=== PATIENT | male | born 1945 | race Caucasian/White ===

== ENCOUNTER 2022-07-16 07:20 | Observation (INO) ==
--- NOTE | 2022-06-05 09:02 | PAT Medication Instructions ---
Medication Instructions Date of Service June 05, 2022 Home Medications Medication Instructions Recorded metoprolol tartrate 25 mg tablet 12.5 mg PO BID #30 tabs 03/08/21 memantine 5 mg tablet (Namenda) 5 mg PO .COMPLEX #180 tabs 06/03/22 donepezil 5 mg tablet 5 mg PO DAILY #30 tabs 06/04/22 sertraline 50 mg tablet 50 mg PO DAILY #30 tabs 06/04/22 metoprolol tartrate 25 mg tablet 12.5 mg PO BID acetaminophen 500 mg tablet 1,000 mg PO Q6H PRN aspirin 81 mg tablet,delayed release 81 mg PO QAM ezetimibe 10 mg-simvastatin 40 mg tablet 1 tab PO HS metformin 500 mg tablet 500 mg PO BID multivitamin (Multiple Vitamins tablet) 0.5 tab PO BID ramipril 10 mg capsule 10 mg PO QAM rivaroxaban 20 mg tablet (Xarelto) 20 mg PO QPM vit A 7,160 unit-vit C 113 mg-vit E 100 toel-nmti-gxorpm tablet 0.5 tab PO BID memantine 5 mg tablet (Namenda) 5 mg PO .COMPLEX donepezil 5 mg tablet 5 mg PO DAILY sertraline 50 mg tablet 50 mg PO DAILY Continue as directed memantine 5 mg tablet (Namenda) 5 mg PO .COMPLEX sertraline 50 mg tablet 50 mg PO DAILY ASK your prescriber and surgeon rivaroxaban 20 mg tablet (Xarelto) 20 mg PO QPM(in order for spinal or epidural anesthesia, Xarelto needs to be stopped 72 hours/3 days before surgery. Please check if okay with doctor that prescribes this to you) STOP taking 2 weeks before surgery vit A 7,160 unit-vit C 113 mg-vit E 100 ewkb-amsc-enhylv tablet 0.5 tab PO BID DO NOT take the morning of surgery metformin 500 mg tablet 500 mg PO BID multivitamin (Multiple Vitamins tablet) 0.5 tab PO BID ramipril 10 mg capsule 10 mg PO QAM donepezil 5 mg tablet 5 mg PO DAILY Take morning of surgery With a small sip of water, OTHERWISE NOTHING TO EAT OR DRINK AFTER MIDNIGHT: metoprolol tartrate 25 mg tablet 12.5 mg PO BID acetaminophen 500 mg tablet 1,000 mg PO Q6H PRN(if needed) aspirin 81 mg tablet,delayed release 81 mg PO QAM (unless directed otherwise by surgeon) Take evening before surgery metoprolol tartrate 25 mg tablet 12.5 mg PO BID acetaminophen 500 mg tablet 1,000 mg PO Q6H PRN(if needed) ezetimibe 10 mg-simvastatin 40 mg tablet 1 tab PO HS metformin 500 mg tablet 500 mg PO BID multivitamin (Multiple Vitamins tablet) 0.5 tab PO BID Other Notes If you have any questions please call us at [phone] or [phone] or [phone] or [phone]
--- NOTE | 2022-06-09 14:20 | Anesthesiology Consultation ---
Date of Service June 09, 2022 Assessment & Plan (1) Encounter for pre-operative examination: Plan - awaiting cardiology pre-op evaluation. - check BSG am DOS. - pacemaker: [facility] [facility]. - Outpatient joint pathway: Per booking sheet, plan for outpatient joint program. Pt and are concerned/hesitant to pursue outpatient joint and prefer at this time to change plan to overnight observation. If this were to change in future, it would need further review by anesthesiologist given pt age and co-morbidities. Surgeon's office made aware. - will attempt to obtain copy of COVID test from 04/2022, done at [facility] [place] per pt and his . - PCP 05/13/22: "...fall on may 06...seen in the emergency room and had 4 sutures placed in a laceration just superior to his right orbit. Laceration appears well healed at the present time..." - cardiology 03/17/22: "...fatigue, loss of appetite and weight loss-with recent diagnosis of early dementia and depression...07/26/2020 ILR, [facility] > 5 s pause, 08/08/20 s/p dual pacer, [facility]...episode of syncope in November 2019. Loop recorder demonstrates symptomatic 5-second pause. These findings taken together suggested sick sinus syndrome...underwent permanent pacemaker implantation on 08/08/20. No further episodes of syncope...echocardiogram 03/03/22 shows normal wall motion. Lexiscan Cardiolite from 12/18/20 shows fixed inferior/inferoseptal and apical lateral defects. Continue Xarelto for stroke prevention...CT of chest shows stable ascending aortic aneurysm 02/20/22 4.6 cm. Will consider referral after next visit...June 2022-pre-op L knee..." - COVID screening: Per assessment on 06/09/2022: Travel screen-will return from [place] 06/29/22, no known COVID-19 positive contacts or current COVID-19 related symptoms in past 2 weeks. Will attempt to obtain copy of previous positive COVID test given 90 day window. Chart Review Chart Review: Pending: Refer to Additional Notes / Consult section and Patient seen in Pre Admission Testing Teaching & Discussion Pre-Anesthesia Teaching/Discussion Notes: Instructed NPO after midnight before surgery, except medications with 15 cc of water. Medication instructions provided according to the PAT guidelines. History Surgery Operation Date: 07/16/22 08:00 Proposed Procedures p Left Total Knee Arthroplasty - Deshawn Griffiths DO Height/Weight Height: 5 ft 8 in Weight: 73.6 kg Allergies Allergy/AdvReac Type Severity Reaction Status Date / Time No Known Allergies Allergy Verified 06/03/22 11:35 Medications Home Medications Medication Instructions Recorded Confirmed Last Taken metoprolol tartrate 25 mg tablet 12.5 mg PO BID #30 tabs 03/08/21 06/03/22 Unknown acetaminophen 500 mg tablet 1,000 mg PO Q6H PRN Pain 05/30/22 06/03/22 Unknown aspirin 81 mg tablet,delayed 81 mg PO QAM 05/30/22 06/03/22 Unknown release ezetimibe 10 mg-simvastatin 40 mg 1 tab PO HS 05/30/22 06/03/22 Unknown tablet metformin 500 mg tablet 500 mg PO BID 05/30/22 06/03/22 Unknown multivitamin (Multiple Vitamins 0.5 tab PO BID 05/30/22 06/03/22 Unknown tablet) ramipril 10 mg capsule 10 mg PO QAM 05/30/22 06/03/22 Unknown rivaroxaban 20 mg tablet (Xarelto) 20 mg PO QPM 05/30/22 06/03/22 Unknown vit A 7,160 unit-vit C 113 mg-vit 0.5 tab PO BID 05/30/22 06/03/22 Unknown E 100 oqyn-ebmx-jsuipu tablet memantine 5 mg tablet (Namenda) 5 mg PO .COMPLEX #180 tabs 06/03/22 06/03/22 Unknown donepezil 5 mg tablet 5 mg PO DAILY #30 tabs 06/04/22 Unknown sertraline 50 mg tablet 50 mg PO DAILY #30 tabs 06/04/22 Unknown Past Medical History Medical History (Updated 06/09/22 @ 15:02 by Kalyn Escoto PA-C) Anxiety Ascending aortic aneurysm 4.6cm per 02/20/22 CT chest- under surveillance per cardio Basal cell carcinoma NOSE-Mohs CAD (coronary artery disease) Stent x1 (1999) Depression Diabetes mellitus, type 2 NIDDM Enlarged prostate Essential tremor Hands, followed by PCP History of COVID-19 Dx 04/18/22 ([facility]) Symptoms at time: fatigue, loss of taste, cough, sore throat > resolved Hypertension controlled, stable per pt Memory loss Myocardial infarction 1999, Follows with Dr. Senior Pacemaker [facility], implanted 2019 Paroxysmal atrial fibrillation Patient denies h/o stroke, seizures, heart failure, blood clots or blood transfusions. Exercise / Class Metabolic Activity II 4-5 Yardwork/Stairs/Walk up hill (mild SOB with 1 FOS, denies needing to stop, ongoing x several months; denies chest discomfort) Past Family History Family History (Updated 05/30/22 @ 09:07 by Chari Jin, CRIS) Father Myocardial infarction Pneumonia Mother CHF (congestive heart failure) Dementia Sister Bipolar disorder Brother Cerebral aneurysm Past Surgical History Surgical History (Updated 06/05/22 @ 13:39 by Juana Viera) H/O heart artery stent Stent x1 (1999) History of loop recorder History of prostate biopsy Benign x2 Pacemaker Past Anesthesia History No Hx of Anesthesia Complications and Other (mother slow to wake) History of PONV No Hx of PONV and No Hx of Motion Sickness Social History Smoking Status: Never smoker Do You Dip or Chew Tobacco: No Hx Alcohol Use: No Hx Substance Use: No Review of Systems Occasional snoring, denies witnessed apneas. Patient denies chest pain, reflux, fever, chills, cough, wheezing, or palpitations. Physical Exam Vital Signs Vitals BP 109/64 P 61 TEMP 98.4 SP02 95% on RA RESP 17 Physical Full cervical extension range of motion without pain TMD 3.5 finger breadths Mallampati Score 3 Dentition: intact, several caps/crowns, denies chipped or loose teeth, implants or bridges Lungs: normal respiratory effort. Clear throughout to auscultation, no adventitious breath sounds Cardiac: regular rate and rhythm, no murmurs noted Carotid arteries: negative bruit bilat Lab Results Anesthesia Preop Results Results Anesthesia Widget: WBC 7.23 K/ul (4.8-10.8) 06/09/22 Hgb 13.6 g/dl (14.0-18.0) L 06/09/22 Hct 41.9 % (40.1-51.0) 06/09/22 Plt 205 K/uL (130-400) 06/09/22 Na 141 mmol/L (136-145) 06/09/22 K 4.2 mmol/L (3.5-5.1) 06/09/22 Cl 106 mmol/L (98-107) 06/09/22 CO2 29 mmol/L (21-32) 06/09/22 BUN 19 mg/dl (6-23) 06/09/22 Creat 0.87 mg/dl (0.6-1.4) 06/09/22 Glucose Level 93 mg/dl (70-99(Fasting)) 06/09/22 PT 11.6 Seconds (9.0-12.0) 06/09/22 PTT 30.6 Seconds (21.0-31.0) 06/09/22 INR 1.1 (0.9-1.1) 06/09/22 HA1c 6.3 % (4.5-5.6) H 06/09/22 Urine Color Yellow 06/09/22 Urine Appearance Clear (Clear) 06/09/22 Urine pH 6.5 (4.5-7.5) 06/09/22 Urine Specific [place] 1.024 (1.000-1.030) 06/09/22 Urine Protein Negative (Negative) 06/09/22 Urine Glucose (UA) Negative (Negative) 06/09/22 Urine Ketones Trace (Negative) H 06/09/22 Urine Blood Negative (Negative) 06/09/22 Urine Nitrite Negative (Negative) 06/09/22 Urine Bilirubin Negative (Negative) 06/09/22 Urine Urobilinogen Negative (Negative) 06/09/22 Urine Leukocyte Esterase Negative (Negative) 06/09/22 Blood Type O Positive 06/09/22 Antibody Screen NEGATIVE 06/09/22 Testing Laboratory Results A1c - 6.2% 05/13/22 Electrocardiogram Date: 03/17/22 NSR 60 bpm, early transition Chest X-Ray Date: 11/20/21 Mild atherosclerotic calcification of the aortic arch and descending thoracic aorta Left chest wall pacemaker and associated leads are unchanged in position Loop recorder within the left chest wall is also in stable position No radiographic evidence of active disease in the chest Echocardiogram Date: 03/03/22 EF 55-60% The previously noted WMA is not clearly apparent now Mildly dilated LA Mild mitral regurgitation Mild tricuspid regurgitation, RVSP 29 mmHg Ascending aorta 4.1 cm Stress Test Date: 12/18/20 Abnormal Evidence of prior basal to mid inferior/inferoseptal nontransmural infarction and possible apical lateral infarction, but no evidence of transient myocardial ischemia Other Testing Pacemaker report 03/20/22 [facility] Presenting rhythm AP/VS Mode: DDDR 27 mode switch episodes Atrial burden 1% RA pacing 81% RV pacing 4.8%
--- NOTE | 2022-06-30 09:09 | History & Physical Report ---
Date of Service June 30, 2022 date of surgery: 07/16/22 Procedure: Left Total Knee Arthroplasty Surgeon: Deshawn Griffiths Assessment & Plan (1) Arthritis of knee, left: Plan: Risks and benefits of procedure discussed in detail today, patient would like to proceed with a Left total knee replacement at [facility] as scheduled. will obtain medical clearance from Dr Gary and cardiac clearance from Dr Senior prior to surgery as well as obtain PATs at [facility]. Will resume his Xarelto post op, f/u 2 weeks post op for routine post-operative care and x-ray, sooner if having any problems. will make arrangements for HHPT at the time of discharge. At this point in time, has failed conservative measures and would like to proceed with surgical intervention. The risks and benefits have been discussed including, but not limited to, risk of infection, nerve injury, stiffness, loss of motion, failure to improve, etc. Reasonable outcomes and options of treatment were discussed. An explanation of appropriate alternatives to the procedure that may be advantageous were discussed and their risks and benefits, as well as the risks and benefits of not proceeding with treatment. I offered to answer any additional inquiries concerning the treatment involved. All the patient's questions were answered. The patient is agreeable, understanding of the treatment plan and alternatives, and wishes to proceed with the treatment plan. History of Present Illness Chief Complaint: left knee pain Primary Care Provider: Jm Gary DO Mikey is a pleasant 77-year-old male presents for preop evaluation prior to left total knee replacement. He rates his current pain as a 7 out of 10. He is tried and failed previous cortisone injection as well as viscosupplementation as well as oral anti-inflammatories and Tylenol without much relief. He now states pain is affecting his daily activities including walking standing using stairs. He has complaints of pain, swelling and instability. At this point time is failed conservative measures like to proceed with a left total knee replacement. Currently unable to take anti-inflammatories due to to currently taking Xarelto Allergies Allergy/AdvReac Type Severity Reaction Status Date / Time No Known Allergies Allergy Verified 06/03/22 11:35 Home Medications Medication Instructions Recorded Confirmed Type metoprolol tartrate 25 mg tablet 12.5 mg PO BID #30 tabs 03/08/21 06/03/22 Rx acetaminophen 500 mg tablet 1,000 mg PO Q6H PRN Pain 05/30/22 06/03/22 History aspirin 81 mg tablet,delayed 81 mg PO QAM 05/30/22 06/03/22 History release ezetimibe 10 mg-simvastatin 40 mg 1 tab PO HS 05/30/22 06/03/22 History tablet metformin 500 mg tablet 500 mg PO BID 05/30/22 06/03/22 History multivitamin (Multiple Vitamins 0.5 tab PO BID 05/30/22 06/03/22 History tablet) ramipril 10 mg capsule 10 mg PO QAM 05/30/22 06/03/22 History rivaroxaban 20 mg tablet (Xarelto) 20 mg PO QPM 05/30/22 06/03/22 History vit A 7,160 unit-vit C 113 mg-vit 0.5 tab PO BID 05/30/22 06/03/22 History E 100 qbom-vsjf-yfeqay tablet memantine 5 mg tablet (Namenda) 5 mg PO .COMPLEX #180 tabs 06/03/22 06/03/22 Rx donepezil 5 mg tablet 5 mg PO DAILY #30 tabs 06/04/22 Rx sertraline 50 mg tablet 50 mg PO DAILY #30 tabs 06/04/22 Rx cholecalciferol (vitamin D3) 50 50 mcg PO DAILY #30 caps 06/27/22 Rx mcg (2,000 unit) capsule lactulose 10 gram/15 mL oral 10 g (15 mL) PO DAILY #473 mL 06/27/22 Rx solution Past Med/Surg History Medical History Anxiety Ascending aortic aneurysm 4.6cm per 02/20/22 CT chest- under surveillance per cardio Basal cell carcinoma NOSE-Mohs CAD (coronary artery disease) Stent x1 (1999) Depression Diabetes mellitus, type 2 NIDDM Enlarged prostate Essential tremor Hands, followed by PCP History of COVID-19 Dx 04/18/22 ([facility]) Symptoms at time: fatigue, loss of taste, cough, sore throat > resolved Hypertension controlled, stable per pt Memory loss Myocardial infarction 1999, Follows with Dr. Senior Pacemaker [facility], implanted 2019 Paroxysmal atrial fibrillation Surgical History H/O heart artery stent Stent x1 (1999) History of loop recorder History of prostate biopsy Benign x2 Pacemaker Family History Father Myocardial infarction Pneumonia Mother CHF (congestive heart failure) Dementia Sister Bipolar disorder Brother Cerebral aneurysm Social History Smoking Status: Never smoker Second Hand Exposure: No; Hx Alcohol Use: No Hx Substance Use: No Preferred Language: Maltese Communication Ability: Effective Hearing Ability: Use of Hearing Aid Consumer Affairs Manager Required: No Beliefs That Will Affect Care: Roman Catholic Roman Catholic Beliefs: BORN AGAIN [employer] WITNESS Current Living Situation: Spouse current occupational status: retired Feels Safe at Home: Yes Assistive Devices: Glasses and Hearing Aid - Bilateral Review of Systems Review of Systems: All systems reviewed & are unremarkable except as noted in HPI & below Constitutional: no fever, no chills and no sweats Respiratory: no cough and no dyspnea Cardiovascular: no chest pain, no dyspnea and no orthopnea Gastrointestinal: no abdominal pain, no nausea and no vomiting Musculoskeletal: as per Subjective / HPI Physical Exam Physical Exam: HT: 5ft 8in WT: 73.6kg Constitutional: WD/WN, vitals as above no acute distress Respiratory: normal respiratory effort, lungs clear to auscultation no respiratory distress, no labored breathing and does not use accessory muscles Cardiovascular: RRR, no murmur, no edema Gastrointestinal (Abdomen): normal bowel sounds, soft, nontender, no hepatos plenomegaly Musculoskeletal: Knee: + knee abnormal to inspection (LEFT KNEE), + effusion (+1 effusion), + limited ROM of knee (ROM 0/3/110), + knee ROM with crepitation, + joint line tenderness (medial joint line) and + Sarahi's sign positive; no deformity, no skin erythema, no ecchymosis, no valgus laxity, no varus laxity, anterior drawer test negative, Chad's sign negative and pivot shift test negative Results & Data Results & Data ([facility]) Diagnostic Findings Left Knee X-ray: left knee series confirm advanced degenerative changes to the left knee, greatest medial compartments and patellofemoral joint, showing joint space narrowing, osteophyte formation and subchondral sclerosis. no acute bony pathology noted.
[~2022-07-16 07:20] MED LIST: ACETAMINOPHEN 500 MG TAB PO SCH; BUPIVACAINE 0.5 % 5 MG/1 ML PF 10ML VIAL ONE; CeleBREX 200 MG CAP PO SCH; EPINEPHrine INJ 1 MG/ML AMP ONE; FAMOTIDINE 20 MG TAB PO SCH; GABAPENTIN 300 MG CAP PO SCH; LR 500ML BOLUS, THEN 15ML/HR IV SCH; METOCLOPRAMIDE HCL 10 MG TABLET PO SCH; ROPIVACAINE 0.5% 5 MG/ML 30 ML VIAL ONE; ROPIVACAINE 0.5% HCL/PF 150 MG, BUPIVACAINE 0.75% MPF 20 ML, EPINEPHrine 30MG/30ML (OR ... INSTIL SCH; TRANEXAMIC ACID 1,000 MG **IV Intra-op IV SCH; TRANEXAMIC ACID 1,000 MG **IV Pre-op IV SCH; ceFAZolin 2000MG 2,000 MG/15 ML SYR IV SCH; dexAMETHasone 4 MG TAB PO SCH
[2022-07-16] MEDS ORDERED: MIDAZOLAM HCL 1 MG/ML 2ML VIAL ONE (07:34)
[2022-07-16] MEDS ORDERED: fentaNYL citrate 100 MCG/2 ML VIAL ONE (07:34)
--- NOTE | 2022-07-16 07:41 | History & Physical Bridge Note ---
Date of Service July 16, 2022 History & Physical Bridge Note I have examined the patient, reviewed the History & Physical and in the interval since the performance of the History & Physical I have noted the following changes of clinical significance: no changes noted
[2022-07-16] MEDS ORDERED: ORTHO JOINT ANESTHETIC ONE (08:14)
[2022-07-16] MEDS ORDERED: PROPOFOL IV EMULSION 10 MG/ML 20 ML VIAL IV ONE (08:30)
[2022-07-16] MEDS ORDERED: LIDOCAINE 2% MPF LOCAL 5 ML VIAL INFIL ONE (08:30)
[2022-07-16] MEDS ORDERED: PHENYLEPHRINE HCL 10 MG/ML VIAL ONE (09:13)
--- NOTE | 2022-07-16 10:03 | Operative Report ---
Post Operative Report Pre & Post Diagnosis Operation Date: 07/16/22 09:20 Pre-Op Diagnosis: Primary Osteoarthritis of Left Knee Post-Op Diagnosis: Primary Osteoarthritis of Left Knee I identified the patient and participated in the time-out.: Yes Procedure Operation Date: 07/16/22 09:20 Actual Procedures p Left Total Knee Arthroplasty(Left) - Deshawn Griffiths DO Surgeon Deshawn Griffiths DO Estimated Blood Loss 5 I attest to the content of the Intraoperative Record and any orders documented therein. Any exceptions are noted below.
--- NOTE | 2022-07-16 10:05 | Operative Report ---
Post Operative Report Pre & Post Diagnosis Operation Date: 07/16/22 09:20 Pre-Op Diagnosis: Primary Osteoarthritis of Left Knee Post-Op Diagnosis: Primary Osteoarthritis of Left Knee I identified the patient and participated in the time-out.: Yes Procedure Operation Date: 07/16/22 09:20 Actual Procedures p Left Total Knee Arthroplasty(Left) utilizing [employer] patient matched total knee arthroplasty size 7 femur left 7 tibia left 10 polythirty 5 oval patella- Deshawn Griffiths DO Surgeon Deshawn Griffiths DO Hot Box Operator Michael CERVANTES Estimated Blood Loss 5 Findings Consistent with Post-Op Diagnosis Patient presents with severe end-stage tricompartmental degenerative joint disease [id number] subchondral cystic changes marginal osteophytes moderate to large effusion Specimens Bone and cartilage Drains Medium bore Hemovac Anesthesia Type MAC Spinal Regional Complications none Disposition Accompanied Patient To Recovery: No Disposition: Recovery Room Indications Patient presents with severe end-stage DJD failing attempted conservative management including physical therapy anti-inflammatories relative rest activity modification corticosteroid injection viscosupplementation the above intraoperative findings were noted Description of Procedure After proper prepping and draping of the left lower extremity anterior midline incision was made over the region of the extensor extensor mechanism after meticulous hemostasis was obtained and maintained in subcutaneous tissues a medial parapatellar incision was made The patella was subluxed lateralward the medial lateral gutter were cleaned from any hypertrophic synovitis and scar tissue of the distal femoral block was placed and the distal femoral osteotomy cut was made subsequently the chamfers anterior and posterior osteotomy cuts were made utilizing the 4-in-1 block the tibia was subsequently subluxed anteriorward medial and ateral meniscal remnants were excised in their entirety remnants of the anterior and posterior cruciate ligaments were excised in their entirety excellent exposure of the proximal tibia was obtained the tibial osteotomy guide was placed on the proximal tibial osteotomy cut was made once again the knee was irrigated with copious amounts of sterile saline solution the patella was subsequently everted lateralward thickened scar tissue around the patella was removed the patella was subsequently cut utilizing a freehand technique and was drilled prepared for final preparation and placement of patella socially flexion-extension gaps were checked and the equal and symmetric trials were placed to the appropriate femoral and tibial trials with poly-spacer being placed for equal flexion and extension gaps and full range of motion including extension to 0 and flexion to 140 the trial components after having been taken to recovery range of motion was subsequently removed meticulous hemostasis was obtained and maintained subsequently a knee block injection of joint cocktail including ropivacaine 0.5% 150 mg. Bupivacaine 0.5% epinephrine 1-200,030 mL's toradol 30 mg dexamethasone 4 mg ketamine 10 mg clonidine 100 micrograms normal saline solution 30 mg was infiltrated into the soft tissues of the posterior knee medial lateral gutters and periosteal synovium special attention was paid to protect neurovascular structures at all times subsequently trial components having been removed the knee was irrigated with sterile saline solution. debris was removed the proximal tibia was subsequently prepared and was made ready for the placement of the tibial component tibial component was also cemented and tamped into position the femoral component was subsequently p laced and cemented in the position the patellar component was subsequently cemented in position because hemostasis once again obtained and maintained wound having been thoroughly irrigated with debridement and debridement lavage was performed as well as a medial parapatellar incision closed with #1 Vicryl in interrupted fashion subcutaneous was closed with #2 Vicryl skin was closed with skin clips. PA-C was necessary for prepping and drapping as well as wound closure of deep fascia Sub cutaneous tissue and skin and was necessary for the case. A sterile compressive dressing was placed patient was taken to recovery in stable condition of report dictated by Tunde I attest to the content of the Intraoperative Record and any orders documented therein. Any exceptions are noted below.Due to the complex nature of the procedure, the entire surgery was performed with the operational assistance of Michael CERVANTES. The curriculum assistant principal, under direct supervision, was involved in the actual performance of all aspects of the surgical procedure including hemostasis, tissue retraction and incision, instrument management, patient positioning, and wound closure. I attest to the content of the Intraoperative Record and any orders documented therein. Any exceptions are noted below.
--- NOTE | 2022-07-16 11:50 | Anesthesiology Progress Note ---
Date of Service July 16, 2022 Anesthesia Post Procedure Vital Signs Vital Signs: Temp Pulse Pulse Resp BP Pulse Ox O2 Del Method 07/16/22 11:00 60 14 95/55 L 98 Oxymask 07/16/22 11:40 36.4 C L 60 20 102/59 L 95 Room Air 07/16/22 11:30 60 20 100/60 95 Room Air 07/16/22 11:20 60 20 98/58 L 95 Room Air 07/16/22 11:10 60 12 91/54 L 94 Room Air 07/16/22 10:50 60 16 111/61 98 Oxymask 07/16/22 10:44 36.8 C 60 14 86/53 L 98 Oxymask 07/16/22 07:46 36.7 C 60 20 144/87 H 97 Room Air O2 Flow Rate 07/16/22 11:00 3 07/16/22 11:40 07/16/22 11:30 07/16/22 11:20 07/16/22 11:10 07/16/22 10:50 6 07/16/22 10:44 6 07/16/22 07:46 Pain Intensity Left Knee: Pain Intensity: 0 Transfer of Care Handoff Completed per policy Notes Mental Status: alert / awake / arousable Patient Amnestic to Procedure: Yes Nausea / Vomiting: adequately controlled Pain: adequately controlled Airway Patency, RR, SpO2: stable & adequate BP & HR: stable & adequate Hydration State: stable & adequate Neuraxial Anesthesia: was administered and sensory block is resolving Anesthetic Complications: no major complications apparent
--- NOTE | 2022-07-16 11:59 | XRay Report ---
XR knee LT 1 or 2V routine CLINICAL HISTORY: Surgical Post Op COMPARISON: None FINDINGS: Alignment of the total left knee arthroplasty is anatomic. There is no periprosthetic frac ture or unexpected radiopaque foreign body. Surgical drains are in place. IMPRESSION: Expected findings following total left knee arthroplasty. ACT 112: Negative or not required by law. Electronically signed by: Fredrick Soto M.D. 07/16/2022 11:57 AM
[2022-07-16] MEDS ORDERED: MAGNESIUM HYDROXIDE SUSP 30 ML UDC PO PRN (13:29)
[2022-07-16] MEDS ORDERED: bisacodyL 10 MG SUPP PR PRN (13:29)
[2022-07-16] MEDS ORDERED: ONDANSETRON INJ 2 MG/ML 2 ML VIAL IV PRN (13:29)
[2022-07-16] MEDS ORDERED: PHARMACY GLYCEMIC MGMT CONSULT PRN (13:29)
[2022-07-16] MEDS ORDERED: HYDROmorphone INJ 0.5 MG/0.5 ML SYR IV PRN (13:29)
[2022-07-16] MEDS ORDERED: NALOXONE HCL 0.4 MG/1 ML VIAL/CARP IV PRN (13:29)
[2022-07-16] MEDS ORDERED: diphenhydrAMINE 50 MG/ML VIAL IV PRN (13:29)
[2022-07-16] MEDS ORDERED: DEXTROSE 50% 50 ML SYRINGE IV PRN (14:00)
[2022-07-16] MEDS ORDERED: GLUCOSE 10 TAB/TUBE PO PRN (14:00)
[2022-07-16] MEDS ORDERED: GLUCAGON FOR INJ 1 MG VIAL IM PRN (14:00)
[2022-07-16] MEDS ORDERED: CARBOHYDRATES FOR HYPOGLYCEMIA PO PRN (14:00)
[2022-07-16] MEDS ORDERED: GLUCOSE 40% GEL 15 GM TUBE PO PRN (14:00)
--- NOTE | 2022-07-16 14:07 | Hospitalist Consultation ---
Date of Consultation July 16, 2022 Assessment & Plan (1) Status post total left knee replacement: -S/P left total knee arthropathy with Dr. Griffiths on 07/16/22 -No reported complications and EBL reported to be 5 mL -Patient is afebrile, hemodynamically stable, and stable on RA -Pain control, DVT PPX, IV fluids, and abx per the primary team -Pain in the LLE is currently well controlled -Continue famotidine for ulcer prophylaxis -AM CBC and BMP already ordered, follow Hgb and renal function in the AM (2) Paroxysmal atrial fibrillation: -Currently rate controlled -Has been holding his xarelto since 07/12/22 -Xarelto already ordered to restart tomorro, ok to start as long as no active signs of bleeding and Hgb is stable -HS dose of metoprolol ordered to start tonight, OK to continue as long as HR is > 60 BPM and systolic BP is above 100 (3) Hypertension: -Hemodynamically stable -Hold Enalapril until tomorrow, ok to restart if hemodynamically stable and and renal function is stable (4) Memory loss: -Continue Donepezil and Namenda -Currently alerted and oriented to person, place, month, year, and president (5) Enlarged prostate: -Patient has not yet voided since his procedure -Continue to monitor, bladder scans already ordered, could consider starting flomax if having difficulty later today -Monitor intake and output (6) Diabetes mellitus, type 2: -Normally on metformin at home, had am dose today -Pharmacy consulted for glycemic control ,continue to follow their recommendations and orders for now (7) Depression: -Continue sertraline (8) CAD (coronary artery disease): -Continue aspirin and Zetia-statin (9) Anxiety: -See depression Plan The patient was discussed with Dr. Bang at the time of the consult Supervising Physician Co-Signing Physician Notes I personally saw and examined the patient. I verified all burleson points and agree with Nasim Hart PA-C with the following exceptions and/or additions: 77 year old male POD#0 Left TKA. Reviewed past medical history and medications with the patient. Donepezil and sertraline changed to HS. Otherwise as above. Appears to be doing well with pain controlled after his surgery. Thank you for the consult. The medical team will review the patient with his labs tomorrow. History of Present Illness Reason for Consultation: Post-op medical management Requesting Physician: Deshawn Griffiths DO Attending Physician: Dr. Eulalio Bang History of Present Illness Mikey is a 77 year old male with a PMH significant for memory loss, DMII, tremor, depression, HTN, CAD S/P inferior [place] in 2019, afib on xarelto, S/P implanted dual chamber pacemaker, right foot drop, dyslipidemia, who presented to the [facility] OR on 07/16/22 for Left Total Knee Arthroplasty with Dr. Griffiths. Per the post-op no, there were no reported complications and EBL was approximately 5 mL. At the time of the exam the patient was resting comfortably in bed in no acute distress with his sitting bedside. He states that he is feeling very good at the time of the exam. He has no pain currently in his left leg, just ate lunch without issue. He and his confirm that he is on xarelto for afib and he held it starting on 07/12/22. He does not use oxygen at home and has not been diagnosed with ANGELA. Denies any other compaints at the time of the exam. Was told he could take his aspirin and metformin this am prior to his procedure. Allergies Allergy/AdvReac Type Severity Reaction Status Date / Time No Known Allergies Allergy Verified 07/16/22 07:40 Home Medications Medication Instructions Recorded Confirmed Type metoprolol tartrate 25 mg tablet 12.5 mg PO BID #30 tabs 03/08/21 07/16/22 Rx aspirin 81 mg tablet,delayed 81 mg PO QAM 05/30/22 07/16/22 History release ezetimibe 10 mg-simvastatin 40 mg 1 tab PO HS 05/30/22 07/16/22 History tablet metformin 500 mg tablet 500 mg PO BID 05/30/22 07/16/22 History multivitamin (Multiple Vitamins 0.5 tab PO BID 05/30/22 07/16/22 History tablet) ramipril 10 mg capsule 10 mg PO QAM 05/30/22 07/16/22 History rivaroxaban 20 mg tablet (Xarelto) 20 mg PO QPM 05/30/22 07/16/22 History vit A 7,160 unit-vit C 113 mg-vit 0.5 tab PO BID 05/30/22 07/16/22 History E 100 [id number] tablet memantine 5 mg tablet (Namenda) 5 mg PO .COMPLEX #180 tabs 06/03/22 07/16/22 Rx donepezil 5 mg tablet 5 mg PO DAILY #30 tabs 06/04/22 07/16/22 Rx sertraline 50 mg tablet 50 mg PO DAILY #30 tabs 06/04/22 07/16/22 Rx cholecalciferol (vitamin D3) 50 50 mcg PO DAILY #30 caps 06/27/22 07/16/22 Rx mcg (2,000 unit) capsule lactulose 10 gram/15 mL oral 10 g (15 mL) PO DAILY #473 mL 06/27/22 07/16/22 Rx solution acetaminophen 500 mg tablet 1,000 mg PO Q8 21 days #126 tabs 07/17/22 Rx (Tylenol Extra Strength) cefadroxil 500 mg capsule 500 mg PO BID 14 days #28 caps 07/17/22 Rx docusate sodium 100 mg capsule 100 mg PO BID 10 days #20 caps 07/17/22 Rx oxycodone 5 mg tablet 5 - 10 mg PO Q6H PRN pain #30 tabs 07/17/22 Rx Patient History Medical History (Updated 07/16/22 @ 14:30 by Nasim Hart PA-C) Anxiety Ascending aortic aneurysm 4.6cm per 02/20/22 CT chest- under surveillance per cardio Basal cell carcinoma NOSE-Mohs CAD (coronary artery disease) Stent x1 (1999) Depression Diabetes mellitus, type 2 NIDDM Enlarged prostate Essential tremor Hands, followed by PCP History of COVID-19 Dx 04/18/22 ([facility]) Symptoms at time: fatigue, loss of taste, cough, sore throat > resolved Hypertension controlled, stable per pt Memory loss Myocardial infarction 1999, Follows with Dr. Senior Pacemaker [place], implanted 2019 Paroxysmal atrial fibrillation Surgical History (Updated 07/17/22 @ 07:17 by Manjinder Wells PA-C) H/O heart artery stent Stent x1 (1999) History of loop recorder History of prostate biopsy Benign x2 Pacemaker Family History Father Myocardial infarction Pneumonia Mother CHF (congestive heart failure) Dementia Sister Bipolar disorder Brother Cerebral aneurysm Social History Smoking Status: Never smoker Second Hand Exposure: No; Do You Dip or Chew Tobacco: No; Hx Alcohol Use: No Hx Substance Use: No Preferred Language: Kinyarwanda Communication Ability: Effective Hearing Ability: Use of Hearing Aid Genetic Supervisor Required: No Beliefs That Will Affect Care: Anabaptism Anabaptism Beliefs: BORN AGAIN MORAVIAN marital status: Current Living Situation: Spouse current occupational status: retired Other Information That Helps Us Care for You: No Feels Safe at Home: Yes Safety Concerns: Feels Safe At This Time Assistive Devices: None Review of Systems Review of Systems: Denies current fever, chills, headache, changes in vision, hearing, taste, and smell, chest pain, SOB, cough, abdominal pain, nausea, vomiting, diarrhea, hematemesis, melena, dysuria, hematuria, lower extremity pain and recent falls. All systems have been reviewed and are otherwise negative. Physical Exam Physical Exam: Physical Exam: General: In no acute distress, stated age, well-nourished, good hygiene HEENT: Normocephalic, atraumatic, no scleral icterus, pupils around round, symmetrical, and reactive to light, moist mucus membranes, trachea midline, no thyromegaly Chest/Pulm: No respiratory distress, symmetrical chest expansion, clear breath sounds throughout Cardiac: pacemaker in place in the left upper chest, RRR, no murmurs noted Abdomen: Negative for ascites and bruising, normoactive bowel sounds, soft, non-tender to palpation throughout Musculoskeletal: Full ROM of the UE's, left lower extremity currently wrapped and with SCD in place, patient with intact motor function and sensation in the feet and toes Extremities: Radial, dorsalis pedis, and posterior tibial pulses are intact and symmetrical, no edema noted in the LE's Skin: Warm, dry, no rashes , lesions, or scars noted Neuro: Alert and oriented to person, place, month, year, and president, no focal defects, CN II-XII tested and intact, Psych: No acute distress, calm and cooperative during the exam Results & Data Results & Data ([facility]) Vital Signs (Past 12 Hours) Vital Signs Temp Pulse Pulse Pulse Resp BP Pulse Ox 07/16/22 13:05 36.5 C 60 16 114/71 95 07/16/22 13:30 60 16 109/71 95 07/16/22 13:00 60 19 109/60 95 07/16/22 12:30 60 20 110/63 95 07/16/22 12:00 60 20 102/56 L 95 07/16/22 11:50 60 20 99/58 L 95 07/16/22 11:00 60 14 95/55 L 98 07/16/22 11:40 36.4 C L 60 20 102/59 L 95 07/16/22 11:30 60 20 100/60 95 07/16/22 11:20 60 20 98/58 L 95 07/16/22 11:10 60 12 91/54 L 94 07/16/22 10:50 60 16 111/61 98 07/16/22 10:44 36.8 C 60 14 86/53 L 98 07/16/22 07:46 36.7 C 60 20 144/87 H 97 O2 Del Method O2 Flow Rate 07/16/22 13:05 Room Air 07/16/22 13:30 Room Air 07/16/22 13:00 Room Air 07/16/22 12:30 Room Air 07/16/22 12:00 Room Air 07/16/22 11:50 Room Air 07/16/22 11:00 Oxymask 3 07/16/22 11:40 Room Air 07/16/22 11:30 Room Air 07/16/22 11:20 Room Air 07/16/22 11:10 Room Air 07/16/22 10:50 Oxymask 6 07/16/22 10:44 Oxymask 6 07/16/22 07:46 Room Air Laboratory Results Abnormal lab results 07/16/22 07/16/22 Range/Units 10:46 14:12 POC Glucose 111 H 236 H (70-99) mg/dl Diagnostic Findings Knee X-Ray 07/16/22 10:52 XR knee LT 1 or 2V routine CLINICAL HISTORY: Surgical Post Op COMPARISON: None FINDINGS: Alignment of the total left knee arthroplasty is anatomic. There is no periprosthetic fracture or unexpected radiopaque foreign body. Surgical drains are in place. IMPRESSION: Expected findings following total left knee arthroplasty. ACT 112: Negative or not required by law. Electronically signed by: Fredrick Soto M.D. 07/16/2022 11:57 AM ECG Additional Comments: No ECG aviable at the time of the consult PG Care Time/CCT Total # of Minutes Spent Total Time Spent with Patient: Total time spent is greater than 50% in coordination of care (as documented) at patient's floor/unit and/or counseling patient: Coding [place] [address] Office/OBS Consult Lvl 3 Patient Type Established Medical Decision Making High Complexity Diagnoses Status post total left knee replacement Z96.652 Paroxysmal atrial fibrillation I48.0 Hypertension I10 Memory loss R41.3 Enlarged prostate N40.0 Diabetes mellitus, type 2 E11.9 Depression F32.A CAD (coronary artery disease) I25.10 Anxiety F41.9
[2022-07-16] MEDS: SODIUM CHLORIDE 0.9% 1000ML 1,000 ML IV SCH (14:08)
[2022-07-16] MEDS: INSULIN ASPART PER UNIT SC SCH ×3 (14:20→20:56)
[2022-07-16] MEDS: ACETAMINOPHEN 500 MG TAB PO SCH ×2 (14:22→21:15)
--- NOTE | 2022-07-16 14:40 | Pharmacy Report ---
Pharmacy Glycemic Short Note 2 - Date of Service July 16, 2022 - Glycemic Short BSG Results (Last 24 hours): 07/16/22 07/16/22 07/16/22 07:46 10:46 14:12 POC Glucose 98 111 H 236 H OUTPATIENT ANTIDIABETIC REGIMEN: * Metformin 500mg PO BID * 6.3% 06/09/22 ASSESSMENT: * 77 year old male, type 2 DM, s/p L TKA, received dexamethasone 8mg PO preop, BSG up from 111 --> 236mg/dl * Will give one time dose of NPH to cover steroids * wt based bolus CF/CR * Pt is maintained on oral antidiabetic agents as an outpatient * Oral agents are not recommended for inpatient use d/t drug interactions, changing PO intake, and difficulty titrating for acute hyper/hypoglycemia. ADA recommends re-initiating outpatient oral agents 1-2 days prior to discharge if/when appropriate if they were held on admission. * Will hold oral agents for admission and utilize SQ basal bolus insulin regimen which is the recommended regimen for inpatient glycemic control. PLAN FOR INPATIENT GLYCEMIC CONTROL: * Hold outpatient oral diabetes medications * Basal insulin * NPH 20 units SQ x 1 dose now * Bolus insulin * NovoLog per scale ACHS or Q6hrs while NPO * Goal Range: Low 110 mg/dL - High 140 mg/dL * Correction Factor: 25 mg/dL/unit * Nutritional / Prandial insulin per carb ratio of 1 unit per 8 grams CHO consumed
[2022-07-16] MEDS ORDERED: NovoLIN-N (NPH) PER UNIT CHARGE SQ ONE (14:45)
[2022-07-16] MEDS: ceFAZolin 2000MG 2,000 MG/15 ML SYR IV SCH (16:30)
[2022-07-16] MEDS: DOCUSATE SODIUM 100 MG CAP PO SCH (20:41)
[2022-07-16] MEDS: MEMANTINE HCL 5 MG TAB PO SCH (20:42)
[2022-07-16] MEDS: METOPROLOL TARTRATE 25 MG TAB PO SCH (20:42)
[2022-07-16] MEDS ORDERED: NON-FORMULARY MEDICATION (Multivitamin [Multiple Vitamins] tablet) PO SCH (21:00)
[2022-07-16] MEDS ORDERED: DONEPEZIL HCL 5 MG TAB PO SCH (21:00)
[2022-07-16] MEDS ORDERED: EZETIMIBE/SIMVASTATIN 10/40MG 1 TAB TAB PO SCH (21:00)
[2022-07-16] MEDS ORDERED: metFORMIN HCL 500 MG TAB PO SCH (21:00)
[2022-07-16] MEDS ORDERED: SERTRALINE HCL 50 MG TABLET PO SCH (21:00)
[2022-07-16] MEDS: oxyCODONE HCL IR 5 MG TAB (IMMEDIATE RELEASE) PO PRN (21:14)
[2022-07-17] MEDS: SODIUM CHLORIDE 0.9% 1000ML 1,000 ML IV SCH (00:14)
[2022-07-17] MEDS: ceFAZolin 2000MG 2,000 MG/15 ML SYR IV SCH (00:34)
[2022-07-17] MEDS: oxyCODONE HCL IR 5 MG TAB (IMMEDIATE RELEASE) PO PRN (02:36)
[2022-07-17] MEDS: ACETAMINOPHEN 500 MG TAB PO SCH (05:50)
--- NOTE | 2022-07-17 07:17 | Orthopedic Progress Note ---
Date of Service July 17, 2022 Assessment & Plan (1) History of total left knee replacement: Plan: POD #1 s/p left TKA pt/ot dvt proph with DHARA/SCD/resume Xarelto today plan for d/c home with HHPT after PT today Admission and Anticipated Discharge Date Admission Date: July 16, 2022 Subjective POD #1 s/p Left TKA Review of Systems Constitutional: no fever, no chills and no sweats Respiratory: no cough and no dyspnea Cardiovascular: no chest pain and no dyspnea Gastrointestinal: no abdominal pain, no nausea and no vomiting Physical Exam Physical Exam: Vital Signs Temp 36.7 C 07/17/22 03:43 Pulse 64 07/17/22 03:43 Resp 18 07/17/22 03:43 BP 106/62 07/17/22 03:43 Pulse Ox 95 07/17/22 03:43 O2 Del Method 07/17/22 03:43 O2 Flow Rate 3 07/16/22 11:00 Intake & Output 07/16/22 07/17/22 07/17/22 18:59 06:59 18:59 Intake Total 400 / 1640 1240 / 1640 Output Total 395 / 1070 675 / 1070 Balance 5 / 570 565 / 570 Weight 76.1 kg Intake: IV 200 / 1200 1000 / 1200 Lactated Ringe r's 1,000 ml @ 15 0 / 0 mls/hr IV .Q24 H [facility] Rx#: [id number] Sodium Chlorid e 0.9% 1000ML 1, 1000 / 1000 000 ml @ 100 m ls/hr IV .Q10H [facility] Rx#:[id number] Tranexamic Aci d / 0.7% NaCl 1, 200 / 200 000 mg In 100 ml @ 600 mls/hr IV TODAY@0600 K[facility] Rx#:[id number] IV Perioperative 200 / 200 Oral 240 / 240 Output: Urine 300 / 600 300 / 600 Estimated Blood Loss 20 / 20 Drain Output 75 / 450 375 / 450 Left Knee Hemo vac 75 / 450 375 / 450 Other: # Unmeasured Voi ds 1 Weight Measureme nt Method Standing Scale Musculoskeletal: Left Leg: NVDI, calf SNT, negative rei sign. DP palpable, able to wiggle toes/ankle movement without difficulty. dressing clean dry and intact. Results & Data ([facility]) Vital Signs (Past 12 Hours) Vital Signs Temp Pulse Resp BP BP Pulse Ox O2 Del Method 07/17/22 03:43 36.7 C 64 18 106/62 95 Room Air 07/16/22 23:16 36.4 C L 60 18 107/56 L 96 Room Air 07/16/22 20:00 36.6 C 60 18 105/63 95 Room Air Laboratory Results Laboratory Results POC Glucose 163 mg/dl (70-99) H 07/16/22 20:35 SARS-CoV-2 RNA ([place]) Cancelled 07/16/22 07:35 SARS-CoV-2, RNA, NAAT NEGATIVE (NEGATIVE) 07/16/22 07:35 Impressions Knee X-Ray 07/16/22 10:52 XR knee LT 1 or 2V routine CLINICAL HISTORY: Surgical Post Op COMPARISON: None FINDINGS: Alignment of the total left knee arthroplasty is anatomic. There is no periprosthetic fracture or unexpected radiopaque foreign body. Surgical drains are in place. IMPRESSION: Expected findings following total left knee arthroplasty. ACT 112: Negative or not required by law. Electronically signed by: Fredrick Soto M.D. 07/16/2022 11:57 AM
--- NOTE | 2022-07-17 07:29 | Hospitalist Progress Note ---
Date of Service July 17, 2022 Assessment & Plan (1) Status post total left knee replacement: Plan: -S/P left total knee arthropathy with Dr. Griffiths on 07/16/22 -Pain control, DVT PPX, IV fluids, and abx per the primary team -Continue famotidine for ulcer prophylaxis (2) Paroxysmal atrial fibrillation: Plan: -Currently rate controlled continue metoprolol dosing -Has been holding his xarelto since 07/12/22 -Xarelto already ordered to restart 07/17/22 (3) Hypertension: Plan: -Hemodynamically stable -Resume Rampril on 07/18 (4) Memory loss: Plan: -Continue Donepezil and Namenda (5) Enlarged prostate: Plan: no lower urinary tract symptoms (6) Diabetes mellitus, type 2: Plan: -Normally on metformin at home, continue this dosing at home (7) Depression: Plan: -Continue sertraline (8) CAD (coronary artery disease): Plan: -Continue aspirin and Zetia-statin (9) Anxiety: Plan: -See depression Admission and Anticipated Discharge Date Admission Date: July 16, 2022 Subjective Patient no complaints or problems doing well physical therapy likely go home with orthopedics + Review of Systems Review of Systems: Denies current fever, chills, headache, changes in vision, hearing, taste, and smell, chest pain, SOB, cough, abdominal pain, nausea, vomiting, diarrhea, hematemesis, melena, dysuria, hematuria, lower extremity pain and recent falls. All systems have been reviewed and are otherwise negative. Physical Exam Physical Exam: The patient appeared stable Vital signs as documented. Lungs are clear to auscultation and appear unlabored Cardiac exam, Rhythm is regular.. No murmurs, rubs or gallops. Abdominal exam reveals normal bowel sounds, soft non tender, no masses Extremities are with postoperative changes to the left knee which is seems typical for postop day 1 Neurologic exam is alert and oriented, no focal loss of strength or sensation Skin is without bruises or rashes Psychologically is without concerns for anxiety or depression. Results & Data Results & Data ([facility]) Vital Signs (Past 12 Hours) Vital Signs Temp Pulse Resp BP BP Pulse Ox O2 Del Method 07/17/22 03:43 98.1 F 64 18 106/62 95 Room Air 07/16/22 23:16 97.5 F L 60 18 107/56 L 96 Room Air 07/16/22 20:00 97.9 F 60 18 105/63 95 Room Air PG Care Time/CCT Total # of Minutes Spent Total Time Spent with Patient: Total time spent is greater than 50% in coordination of care (as documented) at patient's floor/unit and/or counseling patient: Coding Level of Care Code 70695 Subseq Hosp Care Lvl 2 Diagnoses Status post total left knee replacement Z96.652 Paroxysmal atrial fibrillation I48.0 Hypertension I10 Memory loss R41.3 Enlarged prostate N40.0 Diabetes mellitus, type 2 E11.9 Depression F32.A CAD (coronary artery disease) I25.10 Anxiety F41.9
[2022-07-17] MEDS: MEMANTINE HCL 5 MG TAB PO SCH (07:42)
[2022-07-17] MEDS: METOPROLOL TARTRATE 25 MG TAB PO SCH (07:45)
[2022-07-17] MEDS: DOCUSATE SODIUM 100 MG CAP PO SCH (07:45)
[2022-07-17 07:59] LABS: Hematocrit (blood only) 36.1 % (40.1-51.0); Hemoglobin 12.4 g/dl (14.0-18.0); Mean Corpuscular Hemoglobin 31.5 pg (25.0-34.0); Mean Corpuscular Hgb Conc 34.3 g/dL (32.0-36.0); Mean Corpuscular Volume 91.6 fL (80.0-100.0); Mean Platelet Volume 9.4 fL (9.4-12.4); Platelet Count 195 K/uL (130-400); RDW Coefficient of Variation 12.8 % (11.5-14.5); RDW Standard Deviation 42.4 fL (36.4-46.3); Red Blood Count 3.94 M/uL (4.63-6.08); White Blood Count 15.84 K/ul (4.8-10.8)
[2022-07-17 08:24] LABS: BUN Creatinine Ratio 26.1 (10-20); Calcium 8.6 mg/dl (8.5-10.1); Creatinine Clr Calc Pharmacy 67.2 ml/min; Est GFR (African American) 92.7 ml/min; Est GFR (Non-African American) 79.9 ml/min; Potassium 4.3 mmol/L (3.5-5.1)
[2022-07-17] MEDS ORDERED: ASPIRIN 81 MG ECTAB PO SCH (09:00)
[2022-07-17] MEDS ORDERED: MULTIVITAMIN TAB PO SCH (09:00)
[2022-07-17] MEDS ORDERED: SERTRALINE HCL 50 MG TABLET PO SCH (09:00)
[2022-07-17] MEDS ORDERED: ENALAPRIL MALEATE 10 MG TAB PO SCH (09:00)
[2022-07-17] MEDS ORDERED: LACTULOSE 200GM/700ML WTR ENEMA PR SCH (09:00)
[2022-07-17] MEDS ORDERED: DONEPEZIL HCL 5 MG TAB PO SCH (09:00)
[2022-07-17] MEDS ORDERED: CHOLECALCIFEROL 1,000 UNITS 25 MCG TAB PO SCH (09:00)
[2022-07-17] MEDS: INSULIN ASPART PER UNIT SC SCH (09:23)
[2022-07-17] MEDS ORDERED: INFLUENZA VACCINE HIGH DOSE PF 65+ 0.7 ML SYR IM ONE (12:17)
[2022-07-17] MEDS ORDERED: RIVAROXABAN 20 MG TAB PO SCH (17:00)
--- NOTE | 2022-07-21 17:59 | Discharge Summary ---
Date of Service July 21, 2022 Admission HPI Per Admitting Provider Beltran is a pleasant 77-year-old male presents for preop evaluation prior to left total knee replacement. He rates his current pain as a 7 out of 10. He is tried and failed previous cortisone injection as well as viscosupplementation as well as oral anti-inflammatories and Tylenol without much relief. He now states pain is affecting his daily activities including walking standing using stairs. He has complaints of pain, swelling and instability. At this point time is failed conservative measures like to proceed with a left total knee replacement. Currently unable to take anti-inflammatories due to to currently taking Xarelto Admission Exam Per Admitting Provider Physical Exam: HT: 5ft 8in WT: 73.6kg Constitutional: WD/WN, vitals as above no acute distress Respiratory: normal respiratory effort, lungs clear to auscultation no respiratory distress, no labored breathing and does not use accessory muscles Cardiovascular: RRR, no murmur, no edema Gastrointestinal (Abdomen): normal bowel sounds, soft, nontender, no hepatosplenomegaly Musculoskeletal: Knee: + knee abnormal to inspection (LEFT KNEE), + effusion (+1 effusion), + limited ROM of knee (ROM 0/3/110), + knee ROM with crepitation, + joint line tenderness (medial joint line) and + Sarahi's sign positive; no deformity, no skin erythema, no ecchymosis, no valgus laxity, no varus laxity, anterior drawer test negative, Chad's sign negative and pivot shift test negative Principal Diagnosis Left knee osteoarthritis Discharge Data Allergies Allergy/AdvReac Type Severity Reaction Status Date / Time No Known Allergies Allergy Verified 07/16/22 07:40 Consultations 07/16/22 13:29 Consult Hospitalist Routine Procedures Performed Operation Date: 07/16/22 09:20 Actual Procedures p Left Total Knee Arthroplasty(Left) - Deshawn Gutierrez DO Ordered Studies 07/16/22 05:00 US - OR guided needle placemen Routine Hospital Course (1) History of total left knee replacement: Patient:BELTRAN KRAUS Admit Date:07/16/22 MR#:[id number] Att Phy:Deshawn Gutierrez,D.OMartha Acct ID:[id number] Goldie Phy:Jm Gary DO Date:1945 [facility] Phy:Deshawn Johnson MD Age:77 Location:3W Sex:M Room/Bed:[facility] cc: ~ *NOTICE TO RECEIVING LIBERTARIAN/AGENCY This information is strictly Confidential and protected under [place] law. [place] law prohibits you from making any further disclosure of this information unless further disclosure is expressly permitted by the written consent of the person to whom it pertains or is authorized by law. A general authorization for the release of medical or other information is not sufficient for this purpose. Hospital accepts no responsibility if the information is made available to any other person, INCLUDING THE PATIENT. Date of Service July 17, 2022 Assessment & Plan (1) History of total left knee replacement: Plan: POD #1 s/p left TKA pt/ot dvt proph with DHARA/SCD/resume Xarelto today plan for d/c home with HHPT after PT today Admission and Anticipated Discharge Date Admission Date: July 16, 2022 Subjective POD #1 s/p Left TKA Review of Systems Constitutional: no fever, no chills and no sweats Respiratory: no cough and no dyspnea Cardiovascular: no chest pain and no dyspnea Gastrointestinal: no abdominal pain, no nausea and no vomiting Physical Exam Physical Exam: Vital Signs Temp 36.7 C 07/17/22 03:43 Pulse 64 07/17/22 03:43 Resp 18 07/17/22 03:43 BP 106/62 07/17/22 03:43 Pulse Ox 95 07/17/22 03:43 O2 Del Method 07/17/22 03:43 O2 Flow Rate 3 07/16/22 11:00 Intake & Output 07/16/22 07/17/22 07/17/22 18:59 06:59 18:59 Intake Total 400 / 1640 1240 / 1640 Output Total 395 / 1070 675 / 1070 Balance 5 / 570 565 / 570 Weight 76.1 kg Intake: IV 200 / 1200 1000 / 1200 Lactated Ringe r's 1,000 ml @ 15 0 / 0 mls/hr IV .Q24 H [facility] Rx#: [id number] Sodium Chlorid e 0.9% 1000ML 1, 1000 / 1000 000 ml @ 100 m ls/hr IV .Q10H [facility]IT Rx#:[id number] Tranexamic Aci d / 0.7% NaCl 1, 200 / 200 000 mg In 100 ml @ 600 mls/hr IV TODAY@0600 [facility] Rx#:[id number] IV Perioperative 200 / 200 Oral 240 / 240 Output: Urine 300 / 600 300 / 600 Estimated Blood Loss 20 / 20 Drain Output 75 / 450 375 / 450 Left Knee Hemo vac 75 / 450 375 / 450 Other: # Unmeasured Voi ds 1 Weight Measureme nt Method Standing Scale Musculoskeletal: Left Leg: NVDI, calf SNT, negative rei sign. DP palpable, able to wiggle toes/ankle movement without difficulty. dressing clean dry and intact. Results & Data ([facility]) Vital Signs (Past 12 Hours) Vital Signs Temp Pulse Resp BP BP Pulse Ox O2 Del Method 07/17/22 03:43 36.7 C 64 18 106/62 95 Room Air 07/16/22 23:16 36.4 C L 60 18 107/56 L 96 Room Air 07/16/22 20:00 36.6 C 60 18 105/63 95 Room Air Laboratory Results Laboratory Results POC Glucose 163 mg/dl (70-99) H 07/16/22 20:35 SARS-CoV-2 RNA ([place]) Cancelled 07/16/22 07:35 SARS-CoV-2, RNA, NAAT NEGATIVE (NEGATIVE) 07/16/22 07:35 Impressions Knee X-Ray 07/16/22 10:52 XR knee LT 1 or 2V routine CLINICAL HISTORY: Surgical Post Op COMPARISON: None FINDINGS: Alignment of the total left knee arthroplasty is anatomic. There is no periprosthetic fracture or unexpected radiopaque foreign body. Surgical drains are in place. IMPRESSION: Expected findings following total left knee arthroplasty. ACT 112: Negative or not required by law. Electronically signed by: Fredrick Soto M.D. 07/16/2022 11:57 AM Signed By: <Electronically signed by Manjinder Wells PA-C> 07/17/22 0718 <Electronically signed by Demetrius Khan M.D.> 07/17/22 160 Total Time Total Time Spent Total Time Spent (In Minutes): 5 Discharge Plan Discharge Items Patient Disposition: Home - Home Health Services Reason For Visit: Unilateral Primary Osteoarthritis of Left Knee Discharge Diagnosis: Left Knee Osteoarthritis Activity: Per Instructions section Weightbearing Comment: as tolerated with walker Non-emergency contact: Surgeon Call non-emergency contact if: you have any medication questions, your pain is not controlled, your temperature is above 101.5, your wound has increased redness and your wound has increased drainage Follow-up/Referrals: Deshawn Gutierrez DO [Surgeon] - (Follow up with Dr Gutierrez in 2 weeks from the day of your surgery for your first post operative visit.) Jm Gary DO [Primary Care Provider] - Diet: Regular Addtl Attending Provider Instructions: ACTIVITY RECOMMENDATIONS: SELF CARE INSTRUCTIONS AFTER TOTAL KNEE REPLACEMENT A. You may need to continue a physical therapy program after discharge from the hospital. There are several options available to you. Your doctor will assist you in selecting the best one for you. 1. An out-patient facility 2 to 3 times a week for therapy or home therapy. 2. Continue working on all exercises taught to you in the hospital. Your goals should be to increase bending of your knee to 90 degrees and beyond and to fully straighten your knee. B. You may progress at your own pace from walking with a walker or crutches to a cane; then to no assistive devices. C. Make walking a part of your daily routine. Be up as much as comfortable with rest periods throughout the day. Rest with leg elevation is very important. Use the ice wrap frequently for the first 3-4 weeks. D. There are no restrictions on activities. You may ride in a car, shop, participate in driver salesman and all social activities. E. Wear the long elastic stockings (DHARA hose) 20 hours a day for 2 weeks after surgery. They can be removed several times a day for laundering and for a bath. F. You may shower, no tub baths until cleared by your doctor. SPECIAL CARE INSTRUCTIONS: VERY IMPORTANT TO READ AND REVIEW A. There are a few signs you need to watch for after you are home. Call [facility] if you notice any of the followin. Increased severe knee pain. Some pain is expected especially when you exercise. 2. Increased swelling in your leg or knee; pain or swelling of the calf muscle in either lower leg. 3. Any fluid drainage from the incision. 4. Shortness of breath or chest pain. B. Please call [facility] at if you have any concerns or questions about your operation or recovery. The doctor or his nurse will return your call promptly. C. You must take antibiotics before dental work, bladder, bowel or other surgery. Your doctor will provide you with a permanent care to carry describing this precaution. IMPORTANT: * REMEMBER TO TAKE XARELTO 20MG ORALLY, ONCE DAILY FOR UNLESS OTHERWISE DIRECTED. THIS IS YOUR BLOOD THINNER. * CALL IF INCREASED PAIN, REDNESS, DRAINAGE OR FEVER GREATER THAT 101. * WEAR DHARA HOSE 20 HOURS PER DAY FOR 2 WEEKS. * SUE Dressing - This is a large suction dressing covering your incision. This will help pull any excess drainage from the wound and allow your incision to heal properly. You may shower with this if you can keep the unit outside of the shower. If any bleeding or leakage is noted please call your doctor's office. This will remain on your incision for 7 days and then should be removed. This can be done yourself or by the home nursing staff if applicable. The entire unit is disposable once removed. Once removed, keep incision clean and dry. If redness or drainage is noted, please call your surgeon. . * After your Sue dressing has been removed, follow the wound care instructions below. * DERMABOND Prineo- This is a mesh tape dressing that is covered with glue. It should remain in place until the incision is properly healed, usually 10-14 days. This dressing is designed to naturally slough off. You may trim the excess mesh tape as it peels off. Incision may be briefly wet in a shower. Dry immediately by blotting with a clean, dry towel. Do not bath or swim until instructed by your doctor. Do not scratch, rub, or pick at the dressing. Do not apply any topical ointments or lotions until dressing is completely removed and/or instructed by your doctor. There may be a small piece of suture material at one end of your incision. Do not pull or trim this. If it is bothersome or catching on clothing, you may cover it with a band-aid. FOLLOW UP VISIT: If appointment is not already scheduled: Please call [facility] to make a follow-up appointment for 2 weeks after your surgery at . Pending Studies at Discharge: No Stand-Alone Forms: [facility] [employer], Smoking Cessation Medications and DC Order Prescriptions: New acetaminophen [Tylenol Extra Strength] 500 mg Tablet 1,000 mg PO Q8 21 Days Qty: 126 0RF oxycodone 5 mg Tablet 5 - 10 mg PO Q6H PRN (Reason: pain) Qty: 30 0RF Rx Instructions: ongoing therapy, supervising dr nel gutierrez. max 6 tabs in 24 hours docusate sodium 100 mg Capsule 100 mg PO BID 10 Days Qty: 20 0RF cefadroxil 500 mg capsule 500 mg PO BID 14 Days Qty: 28 0RF Continued metoprolol tartrate 25 mg tablet 12.5 mg PO BID Qty: 30 2RF donepezil 5 mg tablet 5 mg PO DAILY Qty: 30 5RF sertraline 50 mg tablet 50 mg PO DAILY Qty: 30 5RF lactulose 10 gram/15 mL solution 10 g PO DAILY Qty: 473 1RF cholecalciferol (vitamin D3) 50 mcg (2,000 unit) capsule 50 mcg PO DAILY Qty: 30 2RF memantine [Namenda] 5 mg tablet 5 mg PO .COMPLEX Qty: 180 3RF Rx Instructions: 1 tab po daily x 1 week, then increase to 1 tab po BID. multivitamin [Multiple Vitamins] Tablet 0.5 tab PO BID metformin 500 mg tablet 500 mg PO BID aspirin 81 mg tablet,delayed release (DR/EC) 81 mg PO QAM ramipril 10 mg capsule 10 mg PO QAM ezetimibe-simvastatin 10-40 mg tablet 1 tab PO HS Xarelto 20 mg tablet 20 mg PO QPM Rx Instructions: must administer with evening meal vit A-vit C-vit A-jqfq-tzsiyy 7,160-113-100 bcpx-es-tvvu tablet 0.5 tab PO BID Discontinued acetaminophen [Tylenol Ex Str Rapid Release] 500 mg Tablet 1,000 mg PO Q6H PRN (Reason: Pain) Discharge Orders: Discharge Order (Routine); Ordered 07/17/22 Ordered By: Manjinder Almazan/Other Patient Handouts: Knee Replacement Recovery at Home Admission Data Admit Date/Time: 07/16/22 10:52 Attending Provider: Deshawn Gutierrez Admit Provider: Deshawn Gutierrez Primary Care Provider: Jm Gary Other Providers: Julianne Chappell Other Interventions: Discharge Summary Assessment (RN) Last Done: 07/17/22 10:41
== END 2022-07-17 14:54 | disposition home health service (06) ==
LOC: ASU 07:20 → PACUINP 07:20 → 3W 13:19
DX: Z79.82 Long term (current) use of aspirin; Z79.899 Other long term (current) drug therapy; Z95.5 Presence of coronary angioplasty implant and graft; I48.0 Paroxysmal atrial fibrillation; Z86.16 Personal history of COVID-19; M17.12 Unilateral primary osteoarthritis, left knee; I25.10 Atherosclerotic heart disease of native coronary artery without angina pectoris; E11.9 Type 2 diabetes mellitus without complications; I25.2 Old myocardial infarction; I10 Essential (primary) hypertension; Z79.84 Long term (current) use of oral hypoglycemic drugs; F41.9 Anxiety disorder, unspecified; F32.A Depression, unspecified; R41.3 Other amnesia

== ENCOUNTER 2023-12-22 07:53 | Inpatient (IN) ==
--- NOTE | 2023-12-02 09:14 | PAT Medication Instructions ---
Medication Instructions Date of Service December 02, 2023 Home Medications Medication Instructions Recorded metoprolol tartrate 25 mg tablet 12.5 mg (1/2 x 25 mg) PO BID #30 03/08/21 tabs memantine 10 mg tablet (Namenda) 10 mg PO BID #60 tabs 09/12/22 primidone 50 mg tablet 25 mg (1/2 x 50 mg) PO .qhs 30 09/14/23 days #30 tabs sertraline 50 mg tablet 75 mg (1.5 x 50 mg) PO DAILY #30 09/14/23 tabs CPAP Machine See Rx Instructions .Route 11/18/23 .COMPLEX #1 ea metoprolol tartrate 25 mg tablet 12.5 mg (1/2 x 25 mg) PO BID ezetimibe 10 mg-simvastatin 40 mg tablet 1 tab PO HS metformin 500 mg tablet 500 mg PO BID multivitamin (Multiple Vitamins tablet) 0.5 tab PO BID ramipril 10 mg capsule 10 mg PO QAM rivaroxaban 20 mg tablet (Xarelto) 20 mg PO QPM vit A 7,160 unit-vit C 113 mg-vit E 100 wpzx-yghh-nbcbqh tablet 0.5 tab PO BID memantine 10 mg tablet (Namenda) 10 mg PO BID primidone 50 mg tablet 25 mg (1/2 x 50 mg) PO QHS sertraline 50 mg tablet 75 mg (1.5 x 50 mg) PO DAILY tamsulosin 0.4 mg capsule 0.4 mg PO HS cholecalciferol (vitamin D3) 50 mcg (2,000 unit) capsule 50 mcg PO QAM donepezil 5 mg tablet 5 mg PO QPM Continue as directed sertraline 50 mg tablet 75 mg (1.5 x 50 mg) PO DAILY ASK your prescriber and surgeon rivaroxaban 20 mg tablet (Xarelto) 20 mg PO QPM(in order for spinal or epidural anesthesia, Xarelto needs to be stopped 72 hours/3 days before surgery. Please check if okay with doctor that prescribes this to you) STOP taking 2 weeks before surgery (or as soon as possible if surgery is within 2 weeks) vit A 7,160 unit-vit C 113 mg-vit E 100 tphr-ockh-gqijkd tablet 0.5 tab PO BID DO NOT take the morning of surgery metformin 500 mg tablet 500 mg PO BID multivitamin (Multiple Vitamins tablet) 0.5 tab PO BID ramipril 10 mg capsule 10 mg PO QAM cholecalciferol (vitamin D3) 50 mcg (2,000 unit) capsule 50 mcg PO QAM Take morning of surgery With a small sip of water, OTHERWISE NOTHING TO EAT OR DRINK AFTER MIDNIGHT: metoprolol tartrate 25 mg tablet 12.5 mg (1/2 x 25 mg) PO BID memantine 10 mg tablet (Namenda) 10 mg PO BID Take evening before surgery metoprolol tartrate 25 mg tablet 12.5 mg (1/2 x 25 mg) PO BID ezetimibe 10 mg-simvastatin 40 mg tablet 1 tab PO HS metformin 500 mg tablet 500 mg PO BID multivitamin (Multiple Vitamins tablet) 0.5 tab PO BID memantine 10 mg tablet (Namenda) 10 mg PO BID primidone 50 mg tablet 25 mg (1/2 x 50 mg) PO QHS tamsulosin 0.4 mg capsule 0.4 mg PO HS donepezil 5 mg tablet 5 mg PO QPM Other Notes If you have any questions please call us at [phone] or [phone] or [phone] or [phone]
--- NOTE | 2023-12-07 13:15 | Anesthesiology Consultation ---
Date of Service December 07, 2023 Assessment & Plan (1) Encounter for pre-operative examination: Chart Review Chart Review: Acceptable Risk for Surgery (pending pacemaker check, cardio clearance and PCP clearance ) and Patient seen in Pre Admission Testing - Need updated pacemaker check and most recent chest CT or CTA (07/2024 per patient) (for ascending aorta aneursym) ([facility]) - Awaiting cardio clearance 12/09/23 ([facility]) - Awaiting PCP clearance (week of 01/03/24- patient unsure of date) - Check BSG AM DOS - Patient is NOT an OPJ candidate Per [facility] appt on 12/07/23, tested positive for Covid 12/05/23- had symptoms for over a week prior to Covid positive test. Patient is currently trying to isolate from . Both are wearing masks. Patient has no current or recent symtpoms. No recent illness/disease positive tests. Preop Covid testing done at [facility] appt 12/07/23= negative. Patient can proceed as scheduled from Covid standpoint pending he does not develop symptoms between now and surgery (will be >15 days from 's Covid positive test to DOS on 12/22/23). Patient understands and will call in if symptoms develop Left total knee arthroplasty 07/16/22= Done under [facility]AB at L3-4 with 2 attempts History Surgery Operation Date: 12/22/23 08:25 Proposed Procedures p Left Knee Revision of Total Knee Arthroplasty of Patella Possible Mely - Deshawn Griffiths DO Height/Weight Height: 5 ft 8 in Weight: 78.3 kg Allergies Allergy/AdvReac Type Severity Reaction Status Date / Time No Known Allergies Allergy Verified 12/01/23 11:11 Medications Home Medications Medication Instructions Recorded Confirmed Last Taken metoprolol tartrate 25 mg tablet 12.5 mg (1/2 x 25 mg) PO BID #30 03/08/21 12/01/23 07/16/22 05:30 tabs ezetimibe 10 mg-simvastatin 40 mg 1 tab PO HS 05/30/22 12/01/23 07/15/22 16:00 tablet metformin 500 mg tablet 500 mg PO BID 05/30/22 12/01/23 07/16/22 05:30 multivitamin (Multiple Vitamins 0.5 tab PO BID 05/30/22 12/01/23 07/15/22 09:00 tablet) ramipril 10 mg capsule 10 mg PO QAM 05/30/22 12/01/23 07/15/22 09:00 rivaroxaban 20 mg tablet (Xarelto) 20 mg PO QPM 05/30/22 12/01/23 07/12/22 17:00 vit A 7,160 unit-vit C 113 mg-vit 0.5 tab PO BID 05/30/22 12/01/23 07/15/22 17:00 E 100 xkth-ixhu-ckrhzh tablet memantine 10 mg tablet (Namenda) 10 mg PO BID #60 tabs 09/12/22 12/01/23 Unknown primidone 50 mg tablet 25 mg (1/2 x 50 mg) PO .qhs 30 09/14/23 12/01/23 Unknown days #30 tabs sertraline 50 mg tablet 75 mg (1.5 x 50 mg) PO DAILY #30 09/14/23 12/01/23 Unknown tabs CPAP Machine See Rx Instructions .Route 11/18/23 11/18/23 Unknown .COMPLEX #1 ea tamsulosin 0.4 mg capsule 0.4 mg PO HS 11/18/23 12/01/23 Unknown cholecalciferol (vitamin D3) 50 50 mcg PO QAM 12/01/23 12/01/23 Unknown mcg (2,000 unit) capsule donepezil 5 mg tablet 5 mg PO QPM 12/01/23 12/01/23 Unknown Past Medical History Medical History Anxiety Ascending aortic aneurysm 4.6cm per 02/20/22 CT chest- under surveillance per cardio most recent CT 10/2023 [facility]. 4.3cm per pt report. Basal cell carcinoma NOSE-Mohs CAD (coronary artery disease) Stent x1 (1999) Depression Diabetes mellitus, type 2 NIDDM- glucose per patient patient Enlarged prostate Essential tremor Hands, followed by neuro ([place])- on primidone History of COVID-19 Dx 04/18/22 ([facility]) Symptoms at time: fatigue, loss of taste, cough, sore throat > resolved Hypertension controlled, stable per pt Memory loss Mild - follows with [place] neuro- on Namenda and donepezil Myocardial infarction 1999 and 2019 (per records) Follows with Dr. Senior- [place] Pacemaker [place], implanted 2019. Hx of SSS. Checked winter 2022. Paroxysmal atrial fibrillation On Xarelto Sleep apnea CPAP Exercise / Class Metabolic Activity III < 4 Walking/Shop/Light housework (one flight of stairs - no chest pain, mild SOB ) Past Family History Family History Father Myocardial infarction Pneumonia Mother CHF (congestive heart failure) Dementia Sister Bipolar disorder Brother Cerebral aneurysm Past Surgical History Surgical History H/O heart artery stent Stent x1 (1999) History of cardioversion History of left knee replacement History of loop recorder Currently not functioning History of Mohs micrographic surgery for skin cancer History of prostate biopsy Benign x2 Pacemaker Past Anesthesia History No Hx of Anesthesia Complications and No Family Hx of Anesthesia Complications History of PONV No Hx of PONV and No Hx of Motion Sickness Social History Smoking Status: Never smoker Do You Dip or Chew Tobacco: No Hx Alcohol Use: No Hx Substance Use: No Review of Systems Patient denies chest pain, shortness of breath, dyspnea on exertion, reflux, cough, wheezing, palpitations. No hx of seizures, stroke. No hx of blood clots or blood transfusions Physical Exam Vital Signs VITALS BP 130/73 P 70 TEMP 98.7 SP02 95% RESP 16 Constitutional no acute distress ENMT Mouth: no TMJ clicking Thyromental Distance: > or= 3.5 Finger Breadths (3.5) Mallampati Class: III Crowns to side teeth Neck neck extension not limited Respiratory normal respiratory effort; no respiratory distress Auscultation: lungs clear to auscultation bilaterally; no wheezes Cardiovascular Rate/Rhythm: regular rate and regular rhythm Heart Sounds: no murmur Vessels: no carotid bruit Musculoskeletal Spine: no pain with cervical ROM Extremities: extremities normal to inspection Psychiatric Orientation: alert Lab Results Anesthesia Preop Results Results Anesthesia Widget: WBC 5.86 K/ul (4.8-10.8) 12/07/23 Hgb 13.7 g/dl (14.0-18.0) L 12/07/23 Hct 40.9 % (42.0-52.0) L 12/07/23 Plt 200 K/uL (130-400) 12/07/23 Na 139 mmol/L (136-145) 12/07/23 K 4.1 mmol/L (3.5-5.1) 12/07/23 Cl 103 mmol/L (98-107) 12/07/23 CO2 30 mmol/L (21-32) 12/07/23 BUN 18 mg/dl (6-23) 12/07/23 Creat 0.88 mg/dl (0.6-1.4) 12/07/23 Glucose Level 70 mg/dl (70-99(Fasting)) 12/07/23 PT 11.5 Seconds (9.0-12.0) 12/07/23 PTT 31 Seconds (21-31) 12/07/23 INR 1.1 (0.9-1.1) 12/07/23 HA1c 6.9 % (4.5-5.6) H 12/07/23 Urine Color Yellow 12/07/23 Urine Appearance Clear (Clear) 12/07/23 Urine pH 7.5 (4.5-7.5) 12/07/23 Urine Specific [place] 1.018 (1.000-1.030) 12/07/23 Urine Protein Negative (Negative) 12/07/23 Urine Glucose (UA) 2+ (Negative) H 12/07/23 Urine Ketones Negative (Negative) 12/07/23 Urine Blood Negative (Negative) 12/07/23 Urine Nitrite Negative (Negative) 12/07/23 Urine Bilirubin Negative (Negative) 12/07/23 Urine Urobilinogen Negative (Negative) 12/07/23 Urine Leukocyte Esterase Negative (Negative) 12/07/23 SARS-CoV-2 RNA (RT-PCR) Negative (Negative) 12/07/23 Blood Type O Positive 12/07/23 Antibody Screen NEGATIVE 12/07/23 Testing Electrocardiogram Date: 12/07/23 Atrial fibrillation with frequent ventricular paced complexes at 71 bpm Echocardiogram Date: 03/03/22 EF 55-60% The previously noted WMA is not clearly apparent now Mildly dilated LA Mild mitral regurgitation Mild tricuspid regurgitation, RVSP 29 mmHg Ascending aorta 4.1 cm Stress Test Date: 12/18/20 Abnormal Evidence of prior basal to mid inferior/inferoseptal nontransmural infarction and possible apical lateral infarction, but no evidence of transient myocardial ischemia
--- NOTE | 2023-12-08 08:02 | History & Physical Report ---
Date of Service December 08, 2023 date of surgery: 12/22/23 Procedure: Left Knee Revision of Patella, Possible Trabecular Surgeon: Deshawn Griffiths, DO Assessment & Plan (1) Painful total knee replacement, left: Plan: Risk and benefits of the procedure were discussed, he would like to proceed with surgery. Plan will be revision of his patellar component of his left total knee with possible trabecular metal. Will plan overnight stay with discharge home with home health physical therapy. Will resume his Xarelto postop day #1. Patient otherwise has no other questions or concerns, follow-up in the office 2 weeks after surgery or sooner if he is having any issues The risks and benefits have been discussed including, but not limited to, risk of infection, nerve injury, stiffness, loss of motion, failure to improve, etc. Reasonable outcomes and options of treatment were discussed. An explanation of appropriate alternatives to the procedure that may be advantageous were discussed and their risks and benefits, as well as the risks and benefits of not proceeding with treatment. I offered to answer any additional inquiries concerning the treatment involved. All the patient's questions were answered. The patient is agreeable, understanding of the treatment plan and alternatives, and wishes to proceed with the treatment plan. Please note the above document was generated using voice recognition software. It may contain grammatical, syntax or spelling errors. Any formal questions or concerns about the content, text or information contained within the body of this dictation should be directly addressed to the provider for clarification History of Present Illness Chief Complaint: left knee pain Primary Care Provider: Nelson Lilly MD Mikey is a pleasant 78-year-old male who presented for preop evaluation prior to upcoming surgery patient, he is currently scheduled for a left knee revision of the patellar component with possible trabecular metal patella. He has a history of left total knee arthroplasty in July 2022 and was seen in July for his 1 year checkup and was doing well had no complaints. He then followed up in October after a fall onto his left knee, underwent x-rays which showed loosening of his patellar component with inferior translation. After discussing further care with like to proceed with revision of his patellar component to his left total knee arthroplasty Allergies Allergy/AdvReac Type Severity Reaction Status Date / Time No Known Allergies Allergy Verified 12/01/23 11:11 Home Medications Medication Instructions Recorded Confirmed Type metoprolol tartrate 25 mg tablet 12.5 mg (2 x 25 mg) PO BID #30 03/08/21 12/01/23 Rx tabs ezetimibe 10 mg-simvastatin 40 mg 1 tab PO HS 05/30/22 12/01/23 History tablet metformin 500 mg tablet 500 mg PO BID 05/30/22 12/01/23 History multivitamin (Multiple Vitamins 0.5 tab PO BID 05/30/22 12/01/23 History tablet) ramipril 10 mg capsule 10 mg PO QAM 05/30/22 12/01/23 History rivaroxaban 20 mg tablet (Xarelto) 20 mg PO QPM 05/30/22 12/01/23 History vit A 7,160 unit-vit C 113 mg-vit 0.5 tab PO BID 05/30/22 12/01/23 History E 100 [id number] tablet memantine 10 mg tablet (Namenda) 10 mg PO BID #60 tabs 09/12/22 12/01/23 Rx primidone 50 mg tablet 25 mg (1/2 x 50 mg) PO .qhs 30 09/14/23 12/01/23 Rx days #30 tabs sertraline 50 mg tablet 75 mg (1.5 x 50 mg) PO DAILY #30 09/14/23 12/01/23 Rx tabs CPAP Machine See Rx Instructions .Route 11/18/23 11/18/23 Rx .COMPLEX #1 ea tamsulosin 0.4 mg capsule 0.4 mg PO HS 11/18/23 12/01/23 History cholecalciferol (vitamin D3) 50 50 mcg PO QAM 12/01/23 12/01/23 History mcg (2,000 unit) capsule donepezil 5 mg tablet 5 mg PO QPM 12/01/23 12/01/23 History Past Med/Surg History Medical History Sleep apnea CPAP Hypertension controlled, stable per pt Paroxysmal atrial fibrillation On Xarelto Ascending aortic aneurysm 4.6cm per 02/20/22 CT chest- under surveillance per cardio most recent CT 10/2023 [facility] [place]. 4.3cm per pt report. CAD (coronary artery disease) Stent x1 (1999) History of COVID-19 Dx 04/18/22 ([facility]) Symptoms at time: fatigue, loss of taste, cough, sore throat > resolved Memory loss Mild Enlarged prostate Diabetes mellitus, type 2 NIDDM- glucose per patient patient Anxiety Depression Essential tremor Hands, followed by PCP Pacemaker [facility], implanted 2019. Checked winter 2022. Basal cell carcinoma NOSE-Mohs Myocardial infarction 1999, Follows with Dr. Senior- NIRAJ Arnold Surgical History History of Mohs micrographic surgery for skin cancer History of cardioversion History of left knee replacement History of loop recorder Currently not functioning Pacemaker History of prostate biopsy Benign x2 H/O heart artery stent Stent x1 (1999) Family History Father Myocardial infarction Pneumonia Mother CHF (congestive heart failure) Dementia Sister Bipolar disorder Brother Cerebral aneurysm Social History Smoking Status: Never smoker Second Hand Exposure: No; Do You Dip or Chew Tobacco: No; Hx Alcohol Use: No Hx Substance Use: No Preferred Language: Kinyarwanda Communication Ability: Effective Hearing Ability: Use of Hearing Aid Unit Supervisor Required: No Beliefs That Will Affect Care: Moravian Moravian Beliefs: BORN AGAIN HINDUISM marital status: Current Living Situation: Spouse current occupational status: retired Feels Safe at Home: Yes Assistive Devices: Glasses and Hearing Aid - Bilateral Review of Systems Review of Systems: All systems reviewed & are unremarkable except as noted in HPI & below Constitutional: no fever, no chills and no sweats Respiratory: no cough and no dyspnea Cardiovascular: no chest pain, no dyspnea and no orthopnea Gastrointestinal: no abdominal pain, no nausea and no vomiting Musculoskeletal: as per Subjective / HPI Physical Exam Physical Exam: HT: 5ft 8in WT: 78.3kg Constitutional: WD/WN, vitals as above no acute distress Respiratory: normal respiratory effort, lungs clear to auscultation no respiratory distress, no labored breathing and does not use accessory muscles Cardiovascular: Rate/Rhythm: + irregularly irregular Gastrointestinal (Abdomen): normal bowel sounds, soft, nontender, no hepatosplenomegaly Musculoskeletal: Left Knee Exam Ambulates with a limp, overall neutral alignment, there is no atrophy warmth or ecchymosis noted, mild effusion, maximum tenderness anterior knee. positive patellar apprehension , no crepitation with motion, valgus stress Negative, Varus stress Negative, no Extensor lag, Pain with Active range of motion, also passive painful ROM, Range of motion 0/3/115. No pain with active/passive ROM of ankle. Lower Extremity Strength normal. Lower Extremity Neuro-vascular is normal Results & Data Results & Data Diagnostic Findings LEFT KNEE 3 VIEWS History: Left total knee arthroplasty. FINDINGS: The patient is status post a left total knee arthroplasty. femoral and tibial components in anatomical alignment, appears inferior translation of patellar component on lateral view. IMPRESSION: Left total knee arthroplasty with loosening of patellar component.
[~2023-12-22 07:53] MED LIST changes: -ACETAMINOPHEN 500 MG TAB PO SCH; +BUPIVACAINE 0.25% PF 30 ML VIAL ONE; -CeleBREX 200 MG CAP PO SCH; -EPINEPHrine INJ 1 MG/ML AMP ONE; -FAMOTIDINE 20 MG TAB PO SCH; -GABAPENTIN 300 MG CAP PO SCH; -LR 500ML BOLUS, THEN 15ML/HR IV SCH; -METOCLOPRAMIDE HCL 10 MG TABLET PO SCH; -ROPIVACAINE 0.5% 5 MG/ML 30 ML VIAL ONE; -ROPIVACAINE 0.5% HCL/PF 150 MG, BUPIVACAINE 0.75% MPF 20 ML, EPINEPHrine 30MG/30ML (OR ... INSTIL SCH; -TRANEXAMIC ACID 1,000 MG **IV Intra-op IV SCH; -TRANEXAMIC ACID 1,000 MG **IV Pre-op IV SCH; -ceFAZolin 2000MG 2,000 MG/15 ML SYR IV SCH; -dexAMETHasone 4 MG TAB PO SCH
[2023-12-22] MEDS: oxyCODONE HCL 10 MG TABCR (OxyCONTIN) PO SCH (08:35)
[2023-12-22] MEDS: ACETAMINOPHEN 500 MG TAB PO SCH ×2 (08:35→13:30)
[2023-12-22] MEDS: FAMOTIDINE 20 MG TAB PO SCH (08:35)
[2023-12-22] MEDS: LR 500ML BOLUS, THEN 15ML/HR IV SCH (08:35)
[2023-12-22] MEDS: LR 60ML/HR IV SCH (08:35)
[2023-12-22] MEDS: dexAMETHasone**PF** 10 MG/ML VIAL IV SCH (08:35)
[2023-12-22] MEDS: CeleBREX 200 MG CAP PO SCH (08:35)
[2023-12-22] MEDS: METOCLOPRAMIDE HCL 10 MG TABLET PO SCH (08:35)
[2023-12-22] MEDS: GABAPENTIN 300 MG CAP PO SCH (08:36)
--- NOTE | 2023-12-22 08:57 | History & Physical Bridge Note ---
Date of Service December 22, 2023 History & Physical Bridge Note I have examined the patient, reviewed the History & Physical and in the interval since the performance of the History & Physical I have noted the following changes of clinical significance: no changes noted
[2023-12-22] MEDS ORDERED: PROPOFOL IV EMULSION 10 MG/ML 20 ML VIAL IV ONE (09:04)
[2023-12-22] MEDS ORDERED: MIDAZOLAM HCL 1 MG/ML 2ML VIAL ONE (09:04)
[2023-12-22] MEDS ORDERED: ONDANSETRON INJ 2 MG/ML 2 ML VIAL IV PRN ×2 (09:07→13:21)
[2023-12-22] MEDS ORDERED: ATROPINE SULFATE 0.1 MG/ML 10ML SYR IV PRN (09:07)
[2023-12-22] MEDS ORDERED: fentaNYL citrate PF 100 MCG/2 ML VIAL IV PRN (09:07)
[2023-12-22] MEDS ORDERED: ePHEDrine sulfate 50 MG/ML AMP IV PRN (09:07)
[2023-12-22] MEDS: ceFAZolin 2000MG 2,000 MG/15 ML SYR IV SCH ×2 (10:10→17:20)
[2023-12-22] MEDS ORDERED: ONDANSETRON INJ 2 MG/ML 2 ML VIAL ONE (10:32)
[2023-12-22] MEDS ORDERED: PHENYLEPHRINE HCL 10 MG/ML VIAL ONE (10:32)
[2023-12-22] MEDS ORDERED: ePHEDrine sulfate 50 MG/5 ML SYR ONE (10:51)
[2023-12-22] MEDS: ROPIV 0.5% 246mg, Ketorolac 30mg, EPINEPHrine 0.5mg in NSS INFIL SCH (10:58)
--- NOTE | 2023-12-22 11:12 | Operative Report ---
Post Operative Report Pre & Post Diagnosis Operation Date: 12/22/23 09:35 Pre-Op Diagnosis: Left Knee Failed Total Knee Arthroplasty Post-Op Diagnosis: Left Knee Failed Total Knee Arthroplasty loosening the patellar component I identified the patient and participated in the time-out.: Yes Procedure Operation Date: 12/22/23 09:35 Actual Procedures p Left knee revision patellar component to size 32 of a [employer] journey 2 patient-matched total knee arthroplasty (Left) - Deshawn Griffiths DO Surgeon Deshawn Griffiths DO Dial Equipment Engineer HELEN Mays Estimated Blood Loss 5 Findings Consistent with Post-Op Diagnosis Patient presents after having had a fall sustaining a loosening of the patellar component with no patellar fracture and adequate bone stock noted but the patella was noted to be dislodged and loosened the sitting proximal to the patella Specimens Patellar component Drains Medium bore Hemovac Anesthesia Type MAC Spinal Regional Complications none Disposition Accompanied Patient To Recovery: No Disposition: Recovery Room Indications Patient presents with a lucent patellar component after having had a fall on his total knee arthroplasty from from 2021 Description of Procedure After initiation of regional anesthesia the left lower extremity subsequently prepped and draped you sterile fashion surgery type and anterior midline incision was made the medial parapatellar incision was made the patella was clearly loose and floating freely within the suprapatellar pouch was removed the patellar hypertrophic scar was evaluated the femoral component tibial component pop patella poly were all in excellent condition no loosening or other abnormalities are noted a partial synovectomy was performed the patella was recut and sized to a 32 patella subsequently 32 patella was cemented utilizing standard methylmethacrylate cementing techniques all excess cement was removed the wound was irrigated with copious amounts of sterile saline solution a medium bore Hemovac in place in the deep wound the medial parapatellar incision closed with 0 Vicryl 1 Vicryl and a running strata fix subcu was closed with running strata fix and 2 skin was closed with skin clips sterile compressive dressing was placed patient was taken recovery in stable condition having revise the patellar component all other components are in excellent condition patient tolerated well was taken recovery in stable condition. Please note HELEN Mays was an active splint Case dissipated and exposure revision of patellar component wound closure deep fascia subcu and skin was necessary for the case I attest to the content of the Intraoperative Record and any orders documented therein. Any exceptions are noted below.
--- NOTE | 2023-12-22 12:54 | XRay Report ---
XR knee LT 1 or 2V routine HISTORY: 78 years-old Male Surgical Post Op left knee arthroplasty COMPARISON: 08/15/2022 TECHNIQUE: 2 views of the left knee FINDINGS: Total joint arthroplasty with patellar resurfacing. Anterior midline skin jorgito with expected posto perative soft tissue swelling and deep tissue air. Subcentimeter corticated bone fragments project ov er the medial joint space. No acute fracture or unexpected opaque foreign body. IMPRESSION: Satisfactory alignment of the total joint arthroplasty. ACT 112: Negative or not required by law. The above report was generated using voice recognition software. It may contain grammatical, syntax o r spelling errors. Electronically signed by: Mina Portillo M.D. 12/22/2023 12:53 PM
--- NOTE | 2023-12-22 13:00 | Anesthesiology Progress Note ---
Date of Service December 22, 2023 Anesthesia Post Procedure Vital Signs Vital Signs: Temp Pulse Pulse Resp BP BP Pulse Ox 12/22/23 12:45 36.4 C L 62 15 111/62 99 12/22/23 12:35 63 16 111/63 99 12/22/23 12:25 61 12 107/60 99 12/22/23 12:15 66 16 106/60 97 12/22/23 12:05 65 19 113/61 94 12/22/23 11:55 66 15 109/62 99 12/22/23 11:45 64 17 105/59 L 98 12/22/23 11:39 36.0 C L 66 19 104/59 L 95 12/22/23 08:17 36.5 C 60 18 131/74 95 O2 Del Method O2 Flow Rate 12/22/23 12:45 Nasal Cannula 2 12/22/23 12:35 Nasal Cannula 2 12/22/23 12:25 Nasal Cannula 2 12/22/23 12:15 Nasal Cannula 2 12/22/23 12:05 Nasal Cannula 2 12/22/23 11:55 Oxymask 5 12/22/23 11:45 Oxymask 5 12/22/23 11:39 Oxymask 5 12/22/23 08:17 Room Air Transfer of Care Handoff Completed per policy Notes Mental Status: alert / awake / arousable and participated in evaluation Patient Amnestic to Procedure: Yes Nausea / Vomiting: adequately controlled Pain: adequately controlled Airway Patency, RR, SpO2: stable & adequate BP & HR: stable & adequate Hydration State: stable & adequate Neuraxial Anesthesia: was administered and sensory block is resolving Anesthetic Complications: no major complications apparent and Pt Satisfied with anesthetic care
[2023-12-22] MEDS ORDERED: bisacodyL 10 MG SUPP PR PRN (13:21)
[2023-12-22] MEDS ORDERED: PHARMACY GLYCEMIC MGMT CONSULT PRN (13:21)
[2023-12-22] MEDS ORDERED: MAGNESIUM HYDROXIDE SUSP 30 ML UDC PO PRN (13:21)
[2023-12-22] MEDS ORDERED: METOCLOPRAMIDE HCL INJ 5 MG/ML 2 ML VIAL IV PRN (13:21)
[2023-12-22] MEDS ORDERED: HYDROmorphone INJ 1 MG/ML SYRINGE IV PRN (13:21)
[2023-12-22] MEDS ORDERED: diphenhydrAMINE Capsule 25 MG CAP PO PRN (13:21)
[2023-12-22] MEDS ORDERED: NALOXONE HCL 0.4 MG/1 ML VIAL/CARP IV PRN (13:21)
[2023-12-22] MEDS ORDERED: NON-FORMULARY MEDICATION (Cpap Machine misc) SCH (13:21)
[2023-12-22] MEDS: SODIUM CHLORIDE 0.9% 1,000 ML IV SCH (13:30)
[2023-12-22] MEDS: ORTHO JOINT ANESTHETIC ONE (13:31)
--- NOTE | 2023-12-22 14:06 | Pharmacy Report ---
Pharmacy Glycemic Short Note 2 - Date of Service December 22, 2023 - Glycemic Short BSG Results (Last 24 hours): 12/22/23 12/22/23 08:19 11:54 POC Glucose 126 H 142 H OUTPATIENT ANTIDIABETIC REGIMEN: * metformin 500mg BID * HbA1c 6.9% (12/07/23) ASSESSMENT: * Mikey is a 78 YOM admitted status post left total knee arthroplasty with a history of T2DM. Pharmacy has been consulted for glycemic management while in patient. * Preoperative BSGs within goal range, dexamethasone 10mg IV given this AM preoperatively, will hold basal insulin at this time due to excellent preoperative BSG * Novolog initiated at a weight based stress of 3 PLAN FOR INPATIENT GLYCEMIC CONTROL: * Hold outpatient oral diabetes medications * Basal insulin * Hold * Bolus insulin * NovoLog per scale ACHS or Q6hrs while NPO * Goal Range: Low 110 mg/dL - High 140 mg/dL * Correction Factor: 20 mg/dL/unit * Nutritional / Prandial insulin per carb ratio of 1 unit per 7 grams CHO consumed
[2023-12-22] MEDS: INSULIN ASPART PER UNIT CHARGE SC SCH (14:27)
[2023-12-22] MEDS: TAMSULOSIN HCL 0.4 MG CAP PO SCH (20:23)
[2023-12-22] MEDS: DONEPEZIL HCL 5 MG TAB PO SCH (20:23)
[2023-12-22] MEDS: EZETIMIBE 10 MG TAB PO SCH (20:23)
[2023-12-22] MEDS: PRIMIDONE 50 MG TAB PO SCH (20:24)
[2023-12-22] MEDS: METOPROLOL TARTRATE 25 MG TAB PO SCH (20:24)
[2023-12-22] MEDS: SIMVASTATIN 40 MG TAB PO SCH (20:24)
[2023-12-22] MEDS: SENNA 8.6 MG TAB PO SCH (20:25)
[2023-12-22] MEDS: MEMANTINE HCL 10 MG TAB PO SCH (20:25)
[2023-12-22] MEDS: DOCUSATE SODIUM 100 MG CAP PO SCH (20:25)
[2023-12-22] MEDS ORDERED: EZETIMIBE/SIMVASTATIN 10/40MG TAB PO SCH (21:00)
[2023-12-23 07:03] LABS: Hematocrit (blood only) 37.1 % (42.0-52.0); Hemoglobin 12.3 g/dl (14.0-18.0); Mean Corpuscular Hemoglobin 29.6 pg (25.0-34.0); Mean Corpuscular Hgb Conc 33.2 g/dL (32.0-36.0); Mean Corpuscular Volume 89.2 fL (80.0-100.0); Mean Platelet Volume 9.8 fL (9.4-12.4); Platelet Count 172 K/uL (130-400); RDW Coefficient of Variation 13.8 % (11.5-14.5); RDW Standard Deviation 44.7 fL (36.4-46.3); Red Blood Count 4.16 M/uL (4.70-6.10); White Blood Count 13.44 K/ul (4.8-10.8)
--- NOTE | 2023-12-23 07:05 | Orthopedic Progress Note ---
Date of Service December 23, 2023 Assessment & Plan (1) Painful total knee replacement, left: Plan: POD #1 s/p left knee patellar revision pt/ot dvt proph with DHARA/SCD/resume his Xarelto this evening plan for d/c home with HHPT Admission and Anticipated Discharge Date Admission Date: December 22, 2023 Subjective POD #1 s/p Left knee patellar revision Review of Systems Constitutional: no fever, no chills and no sweats Respiratory: no cough and no dyspnea Cardiovascular: no chest pain and no dyspnea Gastrointestinal: no abdominal pain, no nausea and no vomiting Physical Exam Physical Exam: Vital Signs Temp 36.5 C 12/23/23 03:00 Pulse 71 12/23/23 03:00 Resp 17 12/23/23 03:00 BP 121/68 12/23/23 03:00 Pulse Ox 93 12/23/23 03:00 O2 Del Method Room Air 12/23/23 03:00 O2 Flow Rate 2 12/22/23 12:45 Intake & Output 12/22/23 12/23/23 12/23/23 18:59 06:59 18:59 Intake Total 1200 / 2348.333 1148.333 / 2348.33 3 Output Total 105 / 755 650 / 755 Balance 1095 / 1593.333 498.333 / 1593.333 Weight 78.4 kg Intake: IV 0 / 788.333 788.333 / 788.333 Lactated Ringe r's 1,000 ml @ 15 0 / 0 mls/hr IV .Q24 H [facility] Rx#: [id number] Sodium Chlorid e 0.9% 1,000 ml @ 788.333 / 788.333 100 mls/hr IV .Q10H [facility] Rx#: [id number] IV Perioperative 1200 / 1200 Oral 360 / 360 Output: Urine 100 / 750 650 / 750 Estimated Blood Loss 5 / 5 Other: Weight Measureme nt Method Standing Scale Musculoskeletal: Left Leg: NVDI, calf SNT, negative rei sign. DP palpable, able to wiggle toes/ankle movement without difficulty. dressing clean dry and intact. Results & Data Vital Signs (Past 12 Hours) Vital Signs Temp Pulse Resp BP Pulse Ox O2 Del Method 12/23/23 03:00 36.5 C 71 17 121/68 93 Room Air 12/22/23 23:32 36.5 C 62 18 120/63 95 Room Air 12/22/23 19:12 36.6 C 73 18 113/66 94 Room Air Laboratory Results Laboratory Results WBC 13.44 K/ul (4.8-10.8) H 12/23/23 05:53 RBC 4.16 M/uL (4.70-6.10) L 12/23/23 05:53 Hgb 12.3 g/dl (14.0-18.0) L 12/23/23 05:53 Hct 37.1 % (42.0-52.0) L 12/23/23 05:53 MCV 89.2 fL (80.0-100.0) 12/23/23 05:53 MCH 29.6 pg (25.0-34.0) 12/23/23 05:53 MCHC 33.2 g/dL (32.0-36.0) 12/23/23 05:53 RDW Std Deviation 44.7 fL (36.4-46.3) 12/23/23 05:53 RDW Coeff of Teresa 13.8 % (11.5-14.5) 12/23/23 05:53 Plt Count 172 K/uL (130-400) 12/23/23 05:53 MPV 9.8 fL (9.4-12.4) 12/23/23 05:53 POC Glucose 262 mg/dl (70-99) H 12/22/23 20:18 Blood Type O Positive 12/22/23 08:17 Antibody Screen NEGATIVE 12/22/23 08:17 Impressions Knee X-Ray 12/22/23 11:44 XR knee LT 1 or 2V routine HISTORY: 78 years-old Male Surgical Post Op left knee arthroplasty COMPARISON: 08/15/2022 TECHNIQUE: 2 views of the left knee FINDINGS: Total joint arthroplasty with patellar resurfacing. Anterior midline skin jorgito with expected postoperative soft tissue swelling and deep tissue air. Subcentimeter corticated bone fragments project over the medial joint space. No acute fracture or unexpected opaque foreign body. IMPRESSION: Satisfactory alignment of the total joint arthroplasty. ACT 112: Negative or not required by law. The above report was generated using voice recognition software. It may contain grammatical, syntax or spelling errors. Electronically signed by: Mina Portillo M.D. 12/22/2023 12:53 PM
--- NOTE | 2023-12-23 07:08 | Discharge Summary ---
Date of Service date of discharge: December 23, 2023 date of admission: 12/22/23 Admission HPI Per Admitting Provider Mikey is a pleasant 78-year-old male who presented for preop evaluation prior to upcoming surgery patient, he is currently scheduled for a left knee revision of the patellar component with possible trabecular metal patella. He has a history of left total knee arthroplasty in July 2022 and was seen in July for his 1 year checkup and was doing well had no complaints. He then followed up in October after a fall onto his left knee, underwent x-rays which showed loosening of his patellar component with inferior translation. After discussing further care with like to proceed with revision of his patellar component to his left total knee arthroplasty Principal Diagnosis left knee failed patellar component, s/p patellar revision Discharge Exam Vital Signs Temp 36.5 C 12/23/23 03:00 Pulse 71 12/23/23 03:00 Resp 17 12/23/23 03:00 BP 121/68 12/23/23 03:00 Pulse Ox 93 12/23/23 03:00 O2 Del Method Room Air 12/23/23 03:00 O2 Flow Rate 2 12/22/23 12:45 Intake & Output 12/22/23 12/23/23 12/23/23 18:59 06:59 18:59 Intake Total 1200 / 2348.333 1148.333 / 2348.333 Output Total 105 / 755 650 / 755 Balance 1095 / 1593.333 498.333 / 1593.333 Weight 78.4 kg Intake: IV 0 / 788.333 788.333 / 788.333 Lactated Ringer's 1,000 ml @ 15 0 / 0 mls/hr IV .Q24H KAIT Rx#: [id number] Sodium Chloride 0.9% 1,000 ml @ 788.333 / 788.333 100 mls/hr IV .Q10H KAIT Rx#: [id number] IV Perioperative 1200 / 1200 Oral 360 / 360 Output: Urine 100 / 750 650 / 750 Estimated Blood Loss 5 / 5 Other: Weight Measurement Method Standing Scale Musculoskeletal left knee: NVDI, calf SNT, negative rei sign. DP palpable, able to wiggle toes/ankle movement without difficulty. dressing clean dry and intact. Discharge Data Allergies Allergy/AdvReac Type Severity Reaction Status Date / Time No Known Allergies Allergy Verified 12/22/23 08:17 Consultations 03/12/24 13:21 Consult Hospitalist Routine Procedures Performed Operation Date: 12/22/23 09:35 Actual Procedures p Left Knee Revision of Left Total Knee Arthroplasty-patella(Left) - Deshawn Griffiths DO Ordered Studies 12/22/23 05:00 US - OR guided needle placemen Routine Hospital Course (1) Painful total knee replacement, left: POD #1 s/p left knee patellar revision pt/ot dvt proph with DHARA/SCD/resume his Xarelto this evening plan for d/c home with HHPT Total Time Total Time Spent Total Time Spent (In Minutes): 20 Discharge Plan Discharge Items Patient Disposition: Home - Home Health Services Reason For Visit: Left Knee Failed Total Knee Arthroplasty Discharge Diagnosis: left knee patellar revision Activity: Per Instructions section Weightbearing Comment: WBAT with walker Non-emergency contact: Surgeon Call non-emergency contact if: you have any medication questions, your wound has increased redness, your wound has increased drainage and your wound pain has increased Follow-up/Referrals: Nelson Lilly MD [Primary Care Provider] - Diet: Carb Consistent or DM2 Addtl Attending Provider Instructions: ACTIVITY RECOMMENDATIONS: SELF CARE INSTRUCTIONS AFTER PATELLAR REVISION SURGERY A. You may need to continue a physical therapy program after discharge from the hospital. There are several options available to you. Your doctor will assist you in selecting the best one for you. 1. An out-patient facility 2 to 3 times a week for therapy or home therapy. 2. Continue working on all exercises taught to you in the hospital. Your goals should be to increase bending of your knee to 90 degrees and beyond and to fully straighten your knee. B. You may progress at your own pace from walking with a walker or crutches to a cane; then to no assistive devices. C. Make walking a part of your daily routine. Be up as much as comfortable with rest periods throughout the day. Rest with leg elevation is very important. Use the ice wrap frequently for the first 3-4 weeks. D. There are no restrictions on activities. You may ride in a car, shop, pa rticipate in mixer tender and all social activities. E. Wear the long elastic stockings (DHARA hose) 20 hours a day for 2 weeks after surgery. They can be removed several times a day for laundering and for a bath. F. You may shower, no tub baths until cleared by your doctor. SPECIAL CARE INSTRUCTIONS: VERY IMPORTANT TO READ AND REVIEW A. There are a few signs you need to watch for after you are home. Call [facility] if you notice any of the followin. Increased severe knee pain. Some pain is expected especially when you exercise. 2. Increased swelling in your leg or knee; pain or swelling of the calf muscle in either lower leg. 3. Any fluid drainage from the incision. 4. Shortness of breath or chest pain. B. Please call [facility] at if you have any concerns or questions about your operation or recovery. The doctor or his nurse will return your call promptly. C. You must take antibiotics before dental work, bladder, bowel or other surgery. Your doctor will provide you with a permanent care to carry describing this precaution. IMPORTANT: * REMEMBER TO TAKE ASPIRIN, 81 MG, TWICE DAILY FOR 4 WEEKS UNLESS OTHERWISE DIRECTED. THIS IS YOUR BLOOD THINNER. * HIGH RISK PATIENTS MAY BE PRESCRIBED A STRONGER BLOOD THINNER. THIS WILL BE PROVIDED AT DISCHARGE. * CALL IF INCREASED PAIN, REDNESS, DRAINAGE OR FEVER GREATER THAT 101. * WEAR DHARA HOSE 20 HOURS PER DAY FOR 2 WEEKS. DRESSING INSTRUCTIONS * ABY Dressing- This is a large suction dressing covering your incision. This will help pull any excess drainage from the wound and allow your incision to heal properly. You may shower with this if you can keep the unit outside of the shower. If any bleeding or leakage is noted please call your doctor's office. This will remain on your incision for 7 days and then should be removed. This can be done yourself or by the home nursing staff if applicable. The entire unit is disposable once removed. Once removed, keep incision clean and dry. If redness or drainage is noted, please call your surgeon. ONCE ABY IS REMOVED, FOLLOW THESE INSTRUCTIONS: DERMABOND Prineo- This is a mesh tape dressing that is covered with glue. It should remain in place until the incision is properly healed, usually 10-14 days. This dressing is designed to naturally slough off. You may trim the excess mesh tape as it peels off. Incision may be briefly wet in a shower. Dry immediately by blotting with a clean, dry towel. Do not bath or swim until instructed by your doctor. Do not scratch, rub, or pick at the dressing. Do not apply any topical ointments or lotions until dressing is completely removed and/or instructed by your doctor. There may be a small piece of suture material at one end of your incision. Do not pull or trim this. If it is bothersome or catching on clothing, you may cover it with a band-aid. IF INCISION IS LEAKING THROUGH DRESSING, CALL THE OFFICE . FOLLOW UP VISIT: If appointment is not already scheduled: Please call [facility] to make a follow-up appointment for 2 weeks after your surgery at . Stand-Alone Forms: My [facility] Medications and DC Order Prescriptions: New acetaminophen 500 mg tablet 1,000 mg PO Q8 21 Days Qty: 126 0RF cefadroxil 500 mg capsule 500 mg PO BID 14 Days Qty: 28 0RF docusate sodium 100 mg Capsule 100 mg PO BID Qty: 20 0RF oxycodone 5 mg tablet 5 - 10 mg PO Q6H PRN (Reason: pain) Qty: 30 0RF Rx Instructions: ongoing therapy, supervising dr nel griffiths. max 6 tabs in 24 hours. date of surgery 12/22/23 Continued metoprolol tartrate 25 mg tablet 12.5 mg PO BID Qty: 30 2RF memantine [Namenda] 10 mg tablet 10 mg PO BID Qty: 60 5RF tamsulosin 0.4 mg capsule 0.4 mg PO HS CPAP Machine Misc See Rx Instructions .ROUTE .COMPLEX Qty: 1 0RF Rx Instructions: CPAP 15 cmH2O, mask fit patient comfort, heated modification, compliance download capabilities, DME of patient choice; donepezil [Aricept] 5 mg tablet 5 mg PO QPM cholecalciferol (vitamin D3) 50 mcg (2,000 unit) capsule 50 mcg PO QAM primidone [Mysoline] 50 mg tablet 25 mg PO HS sertraline [Zoloft] 50 mg tablet 75 mg PO DAILY multivitamin [Multiple Vitamins] Tablet 0.5 tab PO BID metformin 500 mg tablet 500 mg PO BID ramipril [Altace] 10 mg capsule 10 mg PO QAM ezetimibe-simvastatin [Vytorin 10-40] 10-40 mg tablet 1 tab PO HS Xarelto 20 mg tablet 20 mg PO QPM Rx Instructions: must administer with evening meal vit A-vit C-vit O-foym-nzqpln [id number] lbyi-qe-oriw tablet 0.5 tab PO BID Admission Data Admit Date/Time: 12/22/23 11:44 Attending Provider: Deshawn Griffiths Admit Provider: Deshawn Griffiths Primary Care Provider: Nelson Lilly Other Providers: Hever Hartman
[2023-12-23 07:21] LABS: BUN Creatinine Ratio 20.6 (10-20); Calcium 8.4 mg/dl (8.6-10.3); Est GFR (African American) 76.7 ml/min; Est GFR (Non-African American) 66.1 ml/min; Potassium 4.3 mmol/L (3.5-5.1)
[2023-12-23] MEDS: CHOLECALCIFEROL 25 MCG (1000 UNITS) TAB PO SCH (08:03)
[2023-12-23] MEDS: ENALAPRIL MALEATE 10 MG TAB PO SCH (08:04)
[2023-12-23] MEDS: MULTIVITAMIN TAB PO SCH (08:06)
[2023-12-23] MEDS: SERTRALINE HCL 50 MG TABLET PO SCH (08:07)
[2023-12-23] MEDS: metFORMIN HCL 500 MG TAB PO SCH (08:11)
[2023-12-23] MEDS: oxyCODONE HCL IR 5 MG TAB (IMMEDIATE RELEASE) PO PRN (08:20)
--- NOTE | 2023-12-23 11:06 | Hospitalist Progress Note ---
Date of Service December 23, 2023 Assessment & Plan (1) Painful total knee replacement, left: Plan: Losening of knee repalcement s/p Fall october 2023 - s/p left knee revision of LTK arthroplasty with Dr. Griffiths 12/21 - abx/ dvt proh/ pain control per primary - hgb 12.3 HH with PT x2 and then pt reports he will go to [facility] (2) Memory loss: Plan: stable - was able to answer my questions and new many of his medications continue namenda and aricept (3) Diabetes mellitus, type 2: Plan: Does not check his sugar at home continue metformin at discharge (4) Paroxysmal atrial fibrillation: Plan: Continue eliquis and metoprolol (5) Depression: Plan: continue zoloft Plan dispo: medically stable Thank you for allowing us to participate in the care of this patient, please reach out with any questions or concerns Admission and Anticipated Discharge Date Admission Date: December 23, 2023 Supervising Physician Co-Signing Physician Notes Attending Attestation - Chart reviewed, care plan d/w HELEN Guillen. I agree w/ the burleson components of her documentation. Eulalio Calderón MD Subjective Patient sitting up to the chair feeling well. Does not check his BP or BS at home. No pain currently. Dressed in street clothes, waiting for his to pick him up. Review of Systems Review of Systems: All systems reviewed & are unremarkable except as noted in Subjective Physical Exam Physical Exam: General: NAD, VS as above Resp: normal respiratory effort, lungs clear to auscultation CV: RRR, no murmur, Abd: normal bowel sounds, non tender, no hepatosplenomegaly Results & Data Results & Data Vital Signs (Past 12 Hours) Vital Signs Temp Pulse Resp BP Pulse Ox O2 Del Method 12/23/23 07:50 36.6 C 60 16 122/66 95 Room Air 12/23/23 03:00 36.5 C 71 17 121/68 93 Room Air 12/22/23 23:32 36.5 C 62 18 120/63 95 Room Air Laboratory Results CBC and chemistry reviewed PG Care Time/CCT Total # of Minutes Spent Total Time Spent with Patient: Total time spent is greater than 50% in coordination of care (as documented) at patient's floor/unit and/or counseling patient: Coding Level of Care Code 10729 SUB INP/OBS CARE MIN Diagnoses Painful total knee replacement, left T84.84XA; Z96.652 Memory loss R41.3 Diabetes mellitus, type 2 E11.9 Paroxysmal atrial fibrillation I48.0 Depression F32.A
[2023-12-23] MEDS ORDERED: RIVAROXABAN 20 MG TAB PO SCH (16:30)
== END 2023-12-23 12:25 | disposition home health service (06) | DRG 489 ==
LOC: 3E 07:53 → ASU 07:53
DX: R41.3 Other amnesia; Z86.16 Personal history of COVID-19; I25.2 Old myocardial infarction; Z79.899 Other long term (current) drug therapy; Z95.0 Presence of cardiac pacemaker; I48.0 Paroxysmal atrial fibrillation; Z95.5 Presence of coronary angioplasty implant and graft; T84.033A Mechanical loosening of internal left knee prosthetic joint, initial encounter; Z79.84 Long term (current) use of oral hypoglycemic drugs; Y83.1 Surgical operation with implant of artificial internal device as the cause of abnormal reaction of the patient, or of later complication, without mention of misadventure at the time of the procedure; I25.10 Atherosclerotic heart disease of native coronary artery without angina pectoris; E11.9 Type 2 diabetes mellitus without complications; F32.A Depression, unspecified; Z79.01 Long term (current) use of anticoagulants